=== PATIENT | male | born 1965 | race Two or more races ===

== ENCOUNTER 2021-07-18 22:10 | Inpatient (IN) | payer OTHER ==
[~2021-07-18] VITALS: Ht 172.7 cm; Wt 62.1 kg
[2021-07-18] MEDS ORDERED: BIKTARVY 50-201 EACH PO (22:33)
[2021-07-18] MEDS ORDERED: SPIRINOLACTONE (22:34)
== END 2021-08-23 17:32 | disposition home or self-care (01) | DRG 602 ==
LOC: ER 22:10 → MEDJ 07-19 15:19
PROVIDERS: ADMIT Internal Medicine; ATTEND Internal Medicine
PROC: 30233R1 Transfusion of Nonautologous Platelets into Peripheral Vein, Percutaneous Approach (ICD-10-PCS; principal; 2021-07-25)
PROC: 30233N1 Transfusion of Nonautologous Red Blood Cells into Peripheral Vein, Percutaneous Approach (ICD-10-PCS; 2021-07-27)
PROC: 0BBC3ZX Excision of Right Upper Lung Lobe, Percutaneous Approach, Diagnostic (ICD-10-PCS; 2021-08-03)
PROC: 02HV33Z Insertion of Infusion Device into Superior Vena Cava, Percutaneous Approach (ICD-10-PCS; 2021-08-10)
PROC: 0JPT0WZ Removal of Totally Implantable Vascular Access Device from Trunk Subcutaneous Tissue and Fascia, Open Approach (ICD-10-PCS; 2021-08-12)
DX: L03.116 Cellulitis of left lower limb (principal); A41.89 Other specified sepsis; T80.211A Bloodstream infection due to central venous catheter, initial encounter; B20 Human immunodeficiency virus [HIV] disease; C46.0 Kaposi's sarcoma of skin; Z16.19 Resistance to other specified beta lactam antibiotics; Z16.24 Resistance to multiple antibiotics; D69.59 Other secondary thrombocytopenia; D63.0 Anemia in neoplastic disease; D63.8 Anemia in other chronic diseases classified elsewhere; D46.9 Myelodysplastic syndrome, unspecified; E03.9 Hypothyroidism, unspecified; J84.89 Other specified interstitial pulmonary diseases; Z95.828 Presence of other vascular implants and grafts; B96.1 Klebsiella pneumoniae [K. pneumoniae] as the cause of diseases classified elsewhere

== ENCOUNTER 2021-09-25 14:42 | Inpatient (IN) | payer OTHER ==
[~2021-09-25] VITALS: Ht 172.7 cm; Wt 67.1 kg
[~2021-09-25 14:42] MED LIST: BIKTARVY 50-201 EACH PO; SPIRINOLACTONE
[2021-09-25] MEDS ORDERED: AMITRIPTYLINE H10 MG PO (15:23)
[2021-09-25] MEDS ORDERED: LEVOTHYROXINE125 MC1 PO (15:23)
[2021-09-25] MEDS ORDERED: PROTONIX40 M1 PO (15:23)
[2021-09-25] MEDS ORDERED: NEURIN (15:24)
[2021-09-25] MEDS ORDERED: SULFAMETHOXAZOL20 ML (15:24)
[2021-09-25] MEDS ORDERED: DIALYVITE TABL1 EACH (15:25)
--- NOTE | 2021-09-25 15:25 | NUR ---
SE RECIBE PTE ALERTA Y ORIENTADO X3,REFIERE TENR CANCER EN LA MELYNA HOWARDDA ,REFIERE TENR SECRECIONES AMARILLENTAS,DESDE EL SABADO BRADY DRA.HERNADEZ PITTS.
--- NOTE | 2021-09-25 20:35 | NUR ---
PACIENTE EVALUADO POR DRA GAMEZ QUIEN ORDENA [place] MEDICO, STEVE DEE LE ORIENTA A PACIENTE SOBRE EL MISMO Y REFIERE ENTENDER. LE COLECTA MUESTRA Y ADM MED GARCÍA ORDEN.
--- NOTE | 2021-09-25 23:23 | NUR ---
SE RECEIBE PTE MASCULINO DE 56 YRS ALERTA CONCIENT Y TRANQUILO , EN SUSSY CON BARANDAS ELEVADA. PTE SE MANTIENE CONSULTADO CON EL ELIAS MISHRA . SE MANTIENE BAJO OBSERVACION.
[2021-09-26] MEDS ORDERED: FOLIC ACID1 MG (14:40)
[2021-09-26] MEDS ORDERED: LORAZEPAM2 MG (14:41)
[2021-09-26] MEDS ORDERED: MULTIVITAMIN1 EACH (14:41)
[2021-09-26] MEDS ORDERED: ABANEU-SL TABL1 EACH (14:41)
[2021-09-26] MEDS ORDERED: TRAMADOL HCL50 MG (14:41)
== END 2021-10-06 22:28 | disposition home or self-care (01) | DRG 603 ==
LOC: ER 14:42 → SURH 09-26 00:40 → ICU-2 09-26 00:40 → SEC-K 09-26 09:48 → SURH 09-26 10:26
PROVIDERS: Surgery; ADMIT Internal Medicine; ATTEND Internal Medicine
PROC: B54DZZZ Ultrasonography of Bilateral Lower Extremity Veins (ICD-10-PCS; 2021-09-26)
PROC: 02HV33Z Insertion of Infusion Device into Superior Vena Cava, Percutaneous Approach (ICD-10-PCS; 2021-09-26)
PROC: 30233N1 Transfusion of Nonautologous Red Blood Cells into Peripheral Vein, Percutaneous Approach (ICD-10-PCS; 2021-10-01)
PROC: 05H533Z Insertion of Infusion Device into Right Subclavian Vein, Percutaneous Approach (ICD-10-PCS; principal; 2021-10-04 22:00)
DX: L03.116 Cellulitis of left lower limb (principal); B20 Human immunodeficiency virus [HIV] disease; C46.0 Kaposi's sarcoma of skin; D63.0 Anemia in neoplastic disease; D46.9 Myelodysplastic syndrome, unspecified; K76.9 Liver disease, unspecified; E03.9 Hypothyroidism, unspecified; Z20.822 Contact with and (suspected) exposure to COVID-19; R16.1 Splenomegaly, not elsewhere classified; Z85.72 Personal history of non-Hodgkin lymphomas

== ENCOUNTER 2022-01-30 15:05 | Inpatient (IN) | payer OTHER ==
[~2022-01-30] VITALS: Ht 172.7 cm; Wt 70.3 kg
[~2022-01-30 15:05] MED LIST changes: +ABANEU-SL TABL1 EACH; +AMITRIPTYLINE H10 MG PO; +DIALYVITE TABL1 EACH; +FOLIC ACID1 MG; +LEVOTHYROXINE125 MC1 PO; +LORAZEPAM2 MG; +MULTIVITAMIN1 EACH; +NEURIN; +PROTONIX40 M1 PO; +SULFAMETHOXAZOL20 ML; +TRAMADOL HCL50 MG
--- NOTE | 2022-01-30 15:29 | NUR ---
PATIENT IS RECIEVED SAYING THAT HE HAS THE FLU AND SUSPECTS TO HAVE A PNEUMONIA.
--- NOTE | 2022-01-30 16:32 | NUR ---
SE RECIBE PTE ALERTA ORIENTADO X3.PTE REHUSA MUESTRAS DE LABORATORIO Y VENOPUNCION.SE ORIENTA PTE SOBRE IMPORTANCIA DE TX MEDICO. SE NOTIFICA A .PTE REHUSA ABGS Y TX DE TERAPIAS RESPIRATORIAS.
--- NOTE | 2022-01-30 17:31 | NUR ---
PTE ALERTA ORIENTADO X3. SE NAHOMI MUESTRAS DE LABORATORIO USANDO MEDIDAS ASEPTICAS. SE INTENTA VENOPUNCION LA CUAL NO SE PUDO ANTONIO.
== END 2022-02-06 14:40 | disposition home or self-care (01) | DRG 194 ==
LOC: ER 15:05 → SEC-K 20:04 → MEDJ 02-01 11:55
PROVIDERS: ADMIT Internal Medicine; ATTEND Internal Medicine
PROC: BB24ZZZ Computerized Tomography (CT Scan) of Bilateral Lungs (ICD-10-PCS; principal; 2022-01-30)
PROC: 3E0F7GC Introduction of Other Therapeutic Substance into Respiratory Tract, Via Natural or Artificial Opening (ICD-10-PCS; 2022-01-30)
PROC: 30233R1 Transfusion of Nonautologous Platelets into Peripheral Vein, Percutaneous Approach (ICD-10-PCS; 2022-02-05)
DX: J18.0 Bronchopneumonia, unspecified organism (principal); B20 Human immunodeficiency virus [HIV] disease; B49 Unspecified mycosis; C46.9 Kaposi's sarcoma, unspecified; D69.59 Other secondary thrombocytopenia; D51.8 Other vitamin B12 deficiency anemias; D63.0 Anemia in neoplastic disease; D46.9 Myelodysplastic syndrome, unspecified; Z20.822 Contact with and (suspected) exposure to COVID-19

== ENCOUNTER 2022-03-19 09:46 | Emergency (ER) | payer OTHER ==
[~2022-03-19] VITALS: Ht 172.7 cm; Wt 73.5 kg
== END 2022-03-19 16:27 | disposition home or self-care (01) ==
LOC: ER 09:46
DX: D69.6 Thrombocytopenia, unspecified (principal); B20 Human immunodeficiency virus [HIV] disease; C46.9 Kaposi's sarcoma, unspecified; Z20.822 Contact with and (suspected) exposure to COVID-19; Z88.8 Allergy status to other drugs, medicaments and biological substances

== ENCOUNTER 2022-04-05 09:06 | Outpatient (CLI) | payer OTHER ==
[2022-04-06] MEDS ORDERED: PENTOXIFYLLINE400 MG (15:25)
[2022-04-06] MEDS ORDERED: FAMOTIDINE20 MG (15:25)
[2022-04-06] MEDS ORDERED: PREDNISONE20 MG (15:26)
== END 2022-04-05 09:08 | disposition home or self-care (01) ==
LOC: NUCLEAR 09:06
PROVIDERS: ATTEND Internal Medicine Hematology & Oncology
DX: I82.403 Acute embolism and thrombosis of unspecified deep veins of lower extremity, bilateral (principal); I73.9 Peripheral vascular disease, unspecified

== ENCOUNTER 2022-04-05 23:07 | Inpatient (IN) | payer OTHER ==
[~2022-04-05] VITALS: Ht 175.3 cm; Wt 90.7 kg
--- NOTE | 2022-04-05 23:14 | NUR ---
PACIENTE REFIERE [facility] ME REALIZARON UN DUPLEX EN EL HOSPITAL Y ME ENVIARON A LA CASA. HE VUELTO YA QUE ESTOY CON DOLOR EN LA PIERNA Y LA VEO HINCHADA.
--- NOTE | 2022-04-06 01:05 | NUR ---
AL MOMENTO DE INTERVENIR CON PTE Y REALIZAR ORDENES MEDICAS, EL MISMO INDICA QUE NO VA A PERMITIR QUE LO CANALICEN Y QUE SE LE REALICEN MUESTRAS DE LABORATORIO SI NO ES A ATRAVES DEL MEDPORT. SE LLAMA A LA DRA Nisa PITTS, QUIEN AUTORIZA A UTILIZAR EL MISMO.
--- NOTE | 2022-04-06 01:45 | NUR ---
PTE EVALUADO POR EL DR LISA CHERY ORDENA EL [place]. SE ORIENTA SOBRE EL TX ORDENADO, LO CUAL REFIERE ENTENDER. 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 PTE TOLERA PROCEDIMIENTO. SE REALIZAN PRUEBAS DE LABORATORIO Y SE ADMINISTRAN MEDICAMENTOS GARCÍA ORDEN MEDICA Y SIGUIENDO MEDIDAS ASEPTICAS Y ESTERILES. PENDIENTE A COLECTAR MUESTRA DE U/A, PTE CON ENVASE.
--- NOTE | 2022-04-06 08:01 | NUR ---
SE RECIBE PTE ALERTA Y ORIENTADO POR 3 EN EL AREA DE OBSERVACION EN SUSSY CON BARANDAS ELEVADA Y TIMBRE ACCESIBLE PTE NO PRESENTA DOLOR AL MOMENTO, SE OBSERVA VENOPUNCION PATENTE Y JOANA DE EDEMA, PTE SE MANTIENE EN OBSERVACION Y BAJO TRATAMIENTO EN ESPERA DEL DR KIM
[2022-04-06] MEDS ORDERED: PENTOXIFYLLINE400 MG (15:25)
[2022-04-06] MEDS ORDERED: FAMOTIDINE20 MG (15:25)
[2022-04-06] MEDS ORDERED: PREDNISONE20 MG (15:26)
== END 2022-04-10 10:46 | disposition home or self-care (01) | DRG 603 ==
LOC: ER 23:07 → MEDJ 04-06 10:49
PROVIDERS: ADMIT Internal Medicine; ATTEND Internal Medicine
PROC: 8E0ZXY6 Isolation (ICD-10-PCS; principal; 2022-04-06)
PROC: BW40ZZZ Ultrasonography of Abdomen (ICD-10-PCS; 2022-04-06)
PROC: B030ZZZ Magnetic Resonance Imaging (MRI) of Brain (ICD-10-PCS; 2022-04-06)
PROC: B54DZZZ Ultrasonography of Bilateral Lower Extremity Veins (ICD-10-PCS; 2022-04-06)
PROC: B44HZZZ Ultrasonography of Bilateral Lower Extremity Arteries (ICD-10-PCS; 2022-04-06)
PROC: 30233R1 Transfusion of Nonautologous Platelets into Peripheral Vein, Percutaneous Approach (ICD-10-PCS; 2022-04-09)
DX: L03.116 Cellulitis of left lower limb (principal); B20 Human immunodeficiency virus [HIV] disease; C46.0 Kaposi's sarcoma of skin; I85.10 Secondary esophageal varices without bleeding; M79.662 Pain in left lower leg; D69.59 Other secondary thrombocytopenia; D63.0 Anemia in neoplastic disease; D70.8 Other neutropenia; H53.8 Other visual disturbances; R51.9 Headache, unspecified; E80.6 Other disorders of bilirubin metabolism; D46.Z Other myelodysplastic syndromes; B19.20 Unspecified viral hepatitis C without hepatic coma; K74.69 Other cirrhosis of liver; R16.1 Splenomegaly, not elsewhere classified; F17.210 Nicotine dependence, cigarettes, uncomplicated; Z20.822 Contact with and (suspected) exposure to COVID-19
CPT/HCPCS: 70553

== ENCOUNTER → 2022-06-16 | Emergency (ER) | payer OTHER ==
[~2022-06-16] VITALS: Ht 172.7 cm; Wt 70.3 kg
[~2022-06-16] MED LIST changes: +ABANEU-SL TABL1 EACH SL; +B12-FOLIC ACID1 EACH PO; +BACTRIM DS TAB1 EACH PO; +FAMOTIDINE20 MG; +LEVOTHYROXINE112 MCG PO; +LORAZEPAM2 MG PO; +MULTIVITAMIN1 EACH PO; +PANTOPRAZOLE SO40 MG PO; +PENTOXIFYLLINE400 MG; +PENTOXIFYLLINE400 MG PO; +PREDNISONE20 MG; +PROMACTA25 MG PO; +TIROSINT112 MCG PO; +ULTRAM50 MG PO; +ZUPLENZ4 MG PO
== END | disposition home or self-care (01) ==
LOC: ER 07:12
DX: M54.50 Low back pain, unspecified (principal); B20 Human immunodeficiency virus [HIV] disease; C72.0 Malignant neoplasm of spinal cord; G82.20 Paraplegia, unspecified; Z88.2 Allergy status to sulfonamides; N39.0 Urinary tract infection, site not specified; D46.Z Other myelodysplastic syndromes

== ENCOUNTER 2022-06-20 11:38 | Inpatient (IN) | payer OTHER ==
[~2022-06-20] VITALS: Ht 172.7 cm; Wt 70.3 kg
[2022-07-05] MEDS ORDERED: AMITRIPTYLINE H25 MG PO (09:31)
== END 2022-07-05 10:44 | disposition home or self-care (01) | DRG 603 ==
LOC: ER 11:38 → MEDJ 18:16
PROVIDERS: ADMIT Internal Medicine; ATTEND Internal Medicine
PROC: B54DZZZ Ultrasonography of Bilateral Lower Extremity Veins (ICD-10-PCS; 2022-06-20)
PROC: 30233R1 Transfusion of Nonautologous Platelets into Peripheral Vein, Percutaneous Approach (ICD-10-PCS; principal; 2022-06-21)
PROC: B020ZZZ Computerized Tomography (CT Scan) of Brain (ICD-10-PCS; 2022-06-21)
PROC: BR29ZZZ Computerized Tomography (CT Scan) of Lumbar Spine (ICD-10-PCS; 2022-06-21)
PROC: BQ3LZZZ Magnetic Resonance Imaging (MRI) of Right Foot (ICD-10-PCS; 2022-06-25)
PROC: 0HBKXZX Excision of Right Lower Leg Skin, External Approach, Diagnostic (ICD-10-PCS; 2022-07-03)
DX: L03.115 Cellulitis of right lower limb (principal); C81.90 Hodgkin lymphoma, unspecified, unspecified site; B20 Human immunodeficiency virus [HIV] disease; K76.6 Portal hypertension; C46.0 Kaposi's sarcoma of skin; I85.10 Secondary esophageal varices without bleeding; D46.9 Myelodysplastic syndrome, unspecified; I87.2 Venous insufficiency (chronic) (peripheral); I73.9 Peripheral vascular disease, unspecified; M79.662 Pain in left lower leg; M79.661 Pain in right lower leg; K76.9 Liver disease, unspecified; K74.60 Unspecified cirrhosis of liver; M54.10 Radiculopathy, site unspecified; B18.2 Chronic viral hepatitis C; B02.9 Zoster without complications; R68.84 Jaw pain
CPT/HCPCS: 73722

== ENCOUNTER 2022-08-22 17:50 | Emergency (ER) | payer OTHER ==
[~2022-08-22] VITALS: Ht 172.7 cm; Wt 70.8 kg
[~2022-08-22 17:50] MED LIST changes: +AMITRIPTYLINE H25 MG PO
== END 2022-08-22 21:49 | disposition home or self-care (01) ==
LOC: ER 17:50
DX: J06.9 Acute upper respiratory infection, unspecified (principal); J00 Acute nasopharyngitis [common cold]; D46.9 Myelodysplastic syndrome, unspecified; Z20.822 Contact with and (suspected) exposure to COVID-19; Z88.6 Allergy status to analgesic agent; Z88.1 Allergy status to other antibiotic agents

== ENCOUNTER 2022-09-24 10:23 | Inpatient (IN) | payer OTHER ==
[~2022-09-24] VITALS: Ht 172.7 cm; Wt 72.6 kg
[2022-09-27] MEDS ORDERED: ZOVIRAX800 MG PO (19:00)
[2022-09-27] MEDS ORDERED: BACTRIM DS TAB1 EACH PO (19:01)
[2022-09-27] MEDS ORDERED: INTESTINEX680 M2 PO (19:02)
[2022-09-27] MEDS ORDERED: CONZIP100 MG PO (19:11)
[2022-09-27] MEDS ORDERED: NEURONTIN300 MG PO (19:11)
== END 2022-09-27 19:18 | disposition home or self-care (01) | DRG 602 ==
LOC: ER 10:23 → MEDJ 18:43
PROVIDERS: ADMIT Internal Medicine; ATTEND Internal Medicine
DX: L03.116 Cellulitis of left lower limb (principal); B02.1 Zoster meningitis; B20 Human immunodeficiency virus [HIV] disease; C46.9 Kaposi's sarcoma, unspecified; L02.416 Cutaneous abscess of left lower limb; B95.62 Methicillin resistant Staphylococcus aureus infection as the cause of diseases classified elsewhere; D46.9 Myelodysplastic syndrome, unspecified; G63 Polyneuropathy in diseases classified elsewhere; K73.9 Chronic hepatitis, unspecified; Z85.72 Personal history of non-Hodgkin lymphomas; Z08 Encounter for follow-up examination after completed treatment for malignant neoplasm

== ENCOUNTER 2022-10-30 11:10 | Emergency (ER) | payer OTHER ==
[~2022-10-30] VITALS: Ht 172.7 cm; Wt 73.9 kg
[~2022-10-30 11:10] MED LIST changes: +CONZIP100 MG PO; +INTESTINEX680 M2 PO; +NEURONTIN300 MG PO; +ZOVIRAX800 MG PO
[2022-10-30] MEDS ORDERED: LEVOTHYROXINE25 MCG PO (11:55)
[2022-10-30] MEDS ORDERED: BIKTARVY 50-201 EACH PO (11:56)
== END 2022-10-30 14:47 | disposition home or self-care (01) ==
LOC: ER 11:10 → EMR PED 11:31 → ER 14:47
PROVIDERS: Emergency Medicine
DX: R05.9 Cough, unspecified (principal); Z88.8 Allergy status to other drugs, medicaments and biological substances; Z20.822 Contact with and (suspected) exposure to COVID-19

== ENCOUNTER 2022-11-24 14:48 | Emergency (ER) | payer OTHER ==
[~2022-11-24] VITALS: Ht 172.7 cm; Wt 68.0 kg
[~2022-11-24 14:48] MED LIST changes: +LEVOTHYROXINE25 MCG PO
[2022-11-24 18:52] LABS: HEMATOCRIT 28.8 % (39.0-48.0); HEMOGLOBIN 9.9 g/dL (13-16.00); MEAN CELL VOLUME 96.7 fL (80.0-100.00); MEAN CORPUSCULAR HEMOGLOBIN 33.3 pg (27.00-32.0); MEAN CORPUSCULAR HGB CONC 34.4 g/dl (32.0-36.0); RED BLOOD COUNT 2.98 M/uL (4.00-6.00); RED CELL DISTRIBUTION WIDTH 15.6 % (11.5-14.5)
[2022-11-24 19:09] LABS: CALCIUM 7.7 mg/dL (8.5-10.1); CREATININE SERUM 0.95 mg/dL (0.70-1.30); GFR 81.14; POTASSIUM 3.2 mEq/L (3.5-5.1)
[2022-11-24 20:22] LABS: PLATELET COUNT 32 K/uL (150-450)
[2022-11-24 21:24] LABS: URINE APPEARANCE Clear; URINE BILIRRUBIN Small (NEGATIVE); URINE BLOOD Negative; URINE COLOR Dark Yellow; URINE GLUCOSE Negative (NEGATIVE); URINE LEUKOCYTE Trace; URINE NITRATE Negative; URINE PROTEIN 30 (NEGATIVE)
[2022-11-24 21:27] LABS: URINE BACTERIA 7.5 uL (0.0-1933); URINE RBC 15.8 uL (0.0-20.8)
[2022-11-24 21:56] LABS: URINE UROBILINOGEN >= 8.0 E.U./dl
== END 2022-11-24 22:45 | disposition home or self-care (01) ==
LOC: ER 14:48
PROVIDERS: Nurse Practitioner Family
DX: S20.211A Contusion of right front wall of thorax, initial encounter (principal); S60.221A Contusion of right hand, initial encounter; S00.93XA Contusion of unspecified part of head, initial encounter; W18.39XA Other fall on same level, initial encounter; Y93.89 Activity, other specified; Y92.018 Other place in single-family (private) house as the place of occurrence of the external cause; Y99.9 Unspecified external cause status; Z20.822 Contact with and (suspected) exposure to COVID-19; Z88.8 Allergy status to other drugs, medicaments and biological substances

== ENCOUNTER 2022-11-26 18:01 | Emergency (ER) | payer OTHER ==
[~2022-11-26] VITALS: Ht 172.7 cm; Wt 70.3 kg
[2022-11-26 19:46] LABS: HEMATOCRIT 27.6 % (39.0-48.0); MEAN CELL VOLUME 95.7 fL (80.0-100.00); MEAN CORPUSCULAR HEMOGLOBIN 34.6 pg (27.00-32.0); MEAN CORPUSCULAR HGB CONC 36.1 g/dl (32.0-36.0); RED BLOOD COUNT 2.88 M/uL (4.00-6.00)
[2022-11-26 19:50] LABS: PLATELET COUNT 34 K/uL (150-450)
[2022-11-26 19:58] LABS: CALCIUM 7.5 mg/dL (8.5-10.1); CREATININE SERUM 0.97 mg/dL (0.70-1.30); GFR 79.22; POTASSIUM 3.37 mEq/L (3.5-5.1)
[2022-11-26] MEDS ORDERED: PERCOGESIC 3251 EACH PO (21:29)
[2022-11-26] MEDS ORDERED: ONDANSETRON HCL4 MG PO (21:31)
[2022-11-26] MEDS ORDERED: PEPCID AC20 MG PO (21:31)
== END 2022-11-26 21:46 | disposition home or self-care (01) ==
LOC: ER 18:01
PROVIDERS: General Practice
DX: R10.9 Unspecified abdominal pain (principal); Z85.89 Personal history of malignant neoplasm of other organs and systems; B20 Human immunodeficiency virus [HIV] disease; Z87.898 Personal history of other specified conditions; Z88.8 Allergy status to other drugs, medicaments and biological substances; R07.89 Other chest pain
CPT/HCPCS: 36415; 71045; 96365; 96366; 99284; J3490; J7042

== ENCOUNTER 2022-11-27 06:21 | Emergency (ER) | payer OTHER ==
[~2022-11-27] VITALS: Ht 172.7 cm; Wt 69.9 kg
[~2022-11-27 06:21] MED LIST changes: +ONDANSETRON HCL4 MG PO; +PEPCID AC20 MG PO; +PERCOGESIC 3251 EACH PO
== END 2022-11-27 14:42 | disposition home or self-care (01) ==
LOC: ER
DX: R11.2 Nausea with vomiting, unspecified (principal); B20 Human immunodeficiency virus [HIV] disease; D46.Z Other myelodysplastic syndromes; R19.7 Diarrhea, unspecified; R10.9 Unspecified abdominal pain; Z88.8 Allergy status to other drugs, medicaments and biological substances; K74.69 Other cirrhosis of liver; R16.1 Splenomegaly, not elsewhere classified

== ENCOUNTER 2022-12-03 16:36 | Emergency (ER) | payer OTHER ==
[~2022-12-03] VITALS: Ht 167.6 cm; Wt 72.6 kg
[2022-12-03 19:21] LABS: HEMOGLOBIN 9.3 g/dL (13-16.00); MEAN CELL VOLUME 92.9 fL (80.0-100.00); MEAN CORPUSCULAR HEMOGLOBIN 32.1 pg (27.00-32.0); MEAN CORPUSCULAR HGB CONC 34.5 g/dl (32.0-36.0); RED CELL DISTRIBUTION WIDTH 16.2 % (11.5-14.5)
[2022-12-03 19:22] LABS: PLATELET COUNT 65 K/uL (150-450)
[2022-12-03 19:31] LABS: INR 1.31; PARTIAL THROMBOPLASTIN TIME 30.6 SECONDS (22.0-34.0); PROTHROMBIN TIME 13.5 SECONDS (9.0-11.5)
[2022-12-03 19:35] LABS: ALBUMIN 1.9 gm/dL (3.4-5.0); BILIRUBIN TOTAL 3.94 mg/dL (0.3-1.2); BILIRUBIN,CONJUGATED 1.93 mg/dL (0.0-0.2); BILIRUBIN,UNCONJUGATED 2.01 mg/dL (0.0-0.6); CALCIUM 7.3 mg/dL (8.5-10.1); CREATININE SERUM 0.84 mg/dL (0.70-1.30); GFR 93.52; GLOBULINA 3.7 G/DL (2.4-3.5); POTASSIUM 3.53 mEq/L (3.5-5.1); TOTAL PROTEIN 5.6 gm/dL (6.4-8.2)
[2022-12-03] MEDS ORDERED: LASIX20 MG PO (21:25)
[2022-12-03] MEDS ORDERED: ALDACTONE50 MG PO (21:25)
[2022-12-03] MEDS ORDERED: LACTULOSE20 GM/30 M PO (21:25)
== END 2022-12-03 21:34 | disposition home or self-care (01) ==
LOC: ER 16:37
PROVIDERS: General Practice
DX: R60.1 Generalized edema (principal); B20 Human immunodeficiency virus [HIV] disease; K76.89 Other specified diseases of liver; Z88.2 Allergy status to sulfonamides
CPT/HCPCS: 36415; 71046; 96365; 99284; J1940

== ENCOUNTER 2022-12-10 13:51 | Inpatient (IN) | payer OTHER ==
[~2022-12-10] VITALS: Ht 152.4 cm; Wt 68.0 kg
[~2022-12-10 13:51] MED LIST changes: +ALDACTONE50 MG PO; +LACTULOSE20 GM/30 M PO; +LASIX20 MG PO
[2022-12-10 17:06] LABS: URINE APPEARANCE Clear; URINE BILIRRUBIN Small (NEGATIVE); URINE BLOOD Negative; URINE COLOR Dark Yellow; URINE GLUCOSE Negative (NEGATIVE); URINE LEUKOCYTE Small; URINE NITRATE Positive; URINE PROTEIN 30 (NEGATIVE)
[2022-12-10 17:07] LABS: URINE BACTERIA 3.7 uL (0.0-1933); URINE RBC 5.6 uL (0.0-20.8); URINE WBC 5.2 uL (0.0-23.2)
[2022-12-10 17:42] LABS: MEAN CELL VOLUME 95.7 fL (80.0-100.00); MEAN CORPUSCULAR HGB CONC 33.9 g/dl (32.0-36.0); RED BLOOD COUNT 2.38 M/uL (4.00-6.00); RED CELL DISTRIBUTION WIDTH 18.3 % (11.5-14.5)
[2022-12-10 17:49] LABS: MEAN CORPUSCULAR HEMOGLOBIN 32.3 pg (27.00-32.0)
[2022-12-10 17:50] LABS: HEMATOCRIT 22.8 % (39.0-48.0); HEMOGLOBIN 7.7 g/dL (13-16.00); PLATELET COUNT 76 K/uL (150-450)
[2022-12-10 18:15] LABS: CALCIUM 7.5 mg/dL (8.5-10.1); CREATININE SERUM 1.04 mg/dL (0.70-1.30); GFR 73.1; POTASSIUM 3.96 mEq/L (3.5-5.1)
[2022-12-10 20:31] LABS: MEAN CELL VOLUME 94.7 fL (80.0-100.00); MEAN CORPUSCULAR HGB CONC 35.2 g/dl (32.0-36.0); RED BLOOD COUNT 2.11 M/uL (4.00-6.00); RED CELL DISTRIBUTION WIDTH 18.5 % (11.5-14.5)
[2022-12-10 20:34] LABS: MEAN CORPUSCULAR HEMOGLOBIN 33.1 pg (27.00-32.0); PLATELET COUNT 64 K/uL (150-450)
[2022-12-11 01:17] LABS: INR 1.31; PARTIAL THROMBOPLASTIN TIME 24.9 SECONDS (22.0-34.0); PROTHROMBIN TIME 13.5 SECONDS (9.0-11.5)
[2022-12-11 17:46] LABS: HEMATOCRIT 25.7 % (39.0-48.0); MEAN CELL VOLUME 93.1 fL (80.0-100.00); MEAN CORPUSCULAR HGB CONC 33.9 g/dl (32.0-36.0); RED BLOOD COUNT 2.76 M/uL (4.00-6.00); RED CELL DISTRIBUTION WIDTH 18.3 % (11.5-14.5)
[2022-12-11 17:53] LABS: MEAN CORPUSCULAR HEMOGLOBIN 31.5 pg (27.00-32.0); PLATELET COUNT 62 K/uL (150-450)
[2022-12-11 17:54] LABS: HEMOGLOBIN 8.7 g/dL (13-16.00)
[2022-12-12 10:23] LABS: HEMATOCRIT 28.7 % (39.0-48.0); HEMOGLOBIN 10.2 g/dL (13-16.00); MEAN CELL VOLUME 92.8 fL (80.0-100.00); MEAN CORPUSCULAR HGB CONC 35.6 g/dl (32.0-36.0); RED BLOOD COUNT 3.09 M/uL (4.00-6.00); RED CELL DISTRIBUTION WIDTH 18.8 % (11.5-14.5)
[2022-12-12 10:54] LABS: ALBUMIN 1.5 gm/dL (3.4-5.0); BILIRUBIN TOTAL 2.76 mg/dL (0.3-1.2); CALCIUM 7.3 mg/dL (8.5-10.1); CREATININE SERUM 0.92 mg/dL (0.70-1.30); GFR 84.2; GLOBULINA 3.9 G/DL (2.4-3.5); POTASSIUM 4.2 mEq/L (3.5-5.1); TOTAL PROTEIN 5.4 gm/dL (6.4-8.2)
[2022-12-12 10:56] LABS: C-REACTIVE PROTEIN 9.27 MG/DL (0.00-0.29)
[2022-12-12 11:16] LABS: PLATELET COUNT 66 K/uL (150-450)
[2022-12-12 12:00] LABS: ob NEGATIVE (NEGATIVE)
[2022-12-13 19:48] LABS: HEMATOCRIT 33.5 % (39.0-48.0); HEMOGLOBIN 11.3 g/dL (13-16.00); MEAN CELL VOLUME 92.8 fL (80.0-100.00); MEAN CORPUSCULAR HEMOGLOBIN 31.3 pg (27.00-32.0); MEAN CORPUSCULAR HGB CONC 33.8 g/dl (32.0-36.0); RED BLOOD COUNT 3.62 M/uL (4.00-6.00); RED CELL DISTRIBUTION WIDTH 18.7 % (11.5-14.5)
[2022-12-13 19:57] LABS: PLATELET COUNT 64 K/uL (150-450)
[2022-12-14 07:38] LABS: HEMATOCRIT 31.8 % (39.0-48.0); HEMOGLOBIN 10.8 g/dL (13-16.00); MEAN CELL VOLUME 92.4 fL (80.0-100.00); MEAN CORPUSCULAR HEMOGLOBIN 31.3 pg (27.00-32.0); MEAN CORPUSCULAR HGB CONC 33.9 g/dl (32.0-36.0); RED BLOOD COUNT 3.45 M/uL (4.00-6.00); RED CELL DISTRIBUTION WIDTH 17.9 % (11.5-14.5)
[2022-12-14 07:56] LABS: BILIRUBIN TOTAL 2.83 mg/dL (0.3-1.2)
[2022-12-14 08:00] LABS: BILIRUBIN,CONJUGATED 1.14 mg/dL (0.0-0.2); BILIRUBIN,UNCONJUGATED 1.69 mg/dL (0.0-0.6)
[2022-12-14 08:21] LABS: PLATELET COUNT 55 K/uL (150-450)
[2022-12-14 19:10] LABS: LOG 10 1.778 (.)
[2022-12-15 08:53] LABS: ERYTHROCYTE SEDIMENTATION RATE 8 mm/hr
[2022-12-15 08:58] LABS: ALBUMIN 1.5 gm/dL (3.4-5.0); BILIRUBIN TOTAL 2.04 mg/dL (0.3-1.2); CALCIUM 7.7 mg/dL (8.5-10.1); CREATININE SERUM 0.94 mg/dL (0.70-1.30); GFR 82.14; GLOBULINA 3.9 G/DL (2.4-3.5); POTASSIUM 4.33 mEq/L (3.5-5.1); TOTAL PROTEIN 5.4 gm/dL (6.4-8.2)
[2022-12-15 08:59] LABS: C-REACTIVE PROTEIN 1.87 MG/DL (0.00-0.29)
[2022-12-15 09:05] LABS: HEMATOCRIT 30.1 % (39.0-48.0); HEMOGLOBIN 10.2 g/dL (13-16.00); MEAN CELL VOLUME 92.5 fL (80.0-100.00); MEAN CORPUSCULAR HEMOGLOBIN 31.5 pg (27.00-32.0); RED BLOOD COUNT 3.26 M/uL (4.00-6.00); RED CELL DISTRIBUTION WIDTH 18.3 % (11.5-14.5)
[2022-12-15 09:53] LABS: PLATELET COUNT 56 K/uL (150-450)
[2022-12-21] MEDS ORDERED: ZYNCOF 400-201 EACH PO (17:06)
[2022-12-21] MEDS ORDERED: PEPCID AC20 MG PO (17:06)
[2022-12-21] MEDS ORDERED: INTESTINEX680 M1 PO (17:06)
[2022-12-21] MEDS ORDERED: LEVOFLOXACIN750 MG PO (17:06)
== END 2022-12-21 17:58 | disposition home or self-care (01) | DRG 977 ==
LOC: ER 13:51 → MEDJ 21:35
PROVIDERS: General Practice; Internal Medicine Hematology & Oncology; Student in an Organized Health Care Education/Training Program; ADMIT Internal Medicine; ATTEND Internal Medicine
PROC: 30233N1 Transfusion of Nonautologous Red Blood Cells into Peripheral Vein, Percutaneous Approach (ICD-10-PCS; 2022-12-11)
PROC: BW28ZZZ Computerized Tomography (CT Scan) of Head (ICD-10-PCS; principal; 2022-12-13)
PROC: B24BZZZ Ultrasonography of Heart with Aorta (ICD-10-PCS; 2022-12-19)
DX: D64.9 Anemia, unspecified (principal); B20 Human immunodeficiency virus [HIV] disease; N18.6 End stage renal disease; C46.9 Kaposi's sarcoma, unspecified; R78.81 Bacteremia; N39.0 Urinary tract infection, site not specified; L03.116 Cellulitis of left lower limb; I12.0 Hypertensive chronic kidney disease with stage 5 chronic kidney disease or end stage renal disease; D61.818 Other pancytopenia; K76.82 Hepatic encephalopathy; E03.9 Hypothyroidism, unspecified; K74.69 Other cirrhosis of liver; B19.20 Unspecified viral hepatitis C without hepatic coma; Z20.822 Contact with and (suspected) exposure to COVID-19

== ENCOUNTER 2023-08-10 11:52 | Inpatient (IN) | payer OTHER ==
[~2023-08-10] VITALS: Ht 167.6 cm; Wt 72.6 kg
[~2023-08-10 11:52] MED LIST changes: +INTESTINEX680 M1 PO; +LEVOFLOXACIN750 MG PO; +SYNTHROID50 MCG PO; +ZYNCOF 400-201 EACH PO
--- NOTE | 2023-08-10 12:25 | NUR ---
SE RECIBE PTE ALERTA Y ORIENTADO X3 CUAL REFIERE SANGRADO EN LAS ENCIAS, DOLOR DE PECHO Y EN TODO EL CUERPO. PTE CON HX MEDICO DE SPLENOMEGALIA Y HIV POS. SE REALIZA EKG, SE NAHOMI S/V Y SE UBICA.
--- NOTE | 2023-08-10 14:14 | NUR ---
PTE REHUSA BENITA DE MUESTRAS HASTA QUE TENGAMOS LA AUTORIZACION PARA EL USO DE MEDPORT.
[2023-08-10 16:22] LABS: URINE APPEARANCE Clear; URINE BILIRRUBIN Negative (NEGATIVE); URINE BLOOD Negative; URINE COLOR Yellow; URINE GLUCOSE Negative (NEGATIVE); URINE LEUKOCYTE Negative; URINE NITRATE Negative; URINE PROTEIN Negative (NEGATIVE)
[2023-08-10 16:27] LABS: URINE RBC 4.1 uL (0.0-20.8)
[2023-08-10 16:43] LABS: URINE BACTERIA 0 uL (0.0-1933); URINE EPITHELIAL CELLS 0.2 uL (0.0-38.8); URINE WBC 0.4 uL (0.0-23.2)
[2023-08-10 16:50] LABS: HEMATOCRIT 24.3 % (39.0-48.0); MEAN CELL VOLUME 99.5 fL (80.0-100.00); MEAN CORPUSCULAR HGB CONC 35.7 g/dl (32.0-36.0); RED BLOOD COUNT 2.44 M/uL (4.00-6.00); RED CELL DISTRIBUTION WIDTH 15.5 % (11.5-14.5)
[2023-08-10 16:55] LABS: INR 1.31; PARTIAL THROMBOPLASTIN TIME 31.2 SECONDS (22.0-34.0); PROTHROMBIN TIME 13.5 SECONDS (9.0-11.5)
[2023-08-10 17:02] LABS: ALBUMIN 2.6 gm/dL (3.4-5.0); BILIRUBIN TOTAL 3.66 mg/dL (0.3-1.2); CREATININE SERUM 1.04 mg/dL (0.70-1.30); GFR 73.1; GLOBULINA 2.6 G/DL (2.4-3.5); POTASSIUM 3.46 mEq/L (3.5-5.1); TOTAL PROTEIN 5.2 gm/dL (6.4-8.2)
[2023-08-10 17:24] LABS: MEAN CORPUSCULAR HEMOGLOBIN 35.6 pg (27.00-32.0)
[2023-08-10 17:25] LABS: PLATELET COUNT 41 K/uL (150-450)
[2023-08-10 18:14] LABS: HEMOGLOBIN 8.7 g/dL (13-16.00)
[2023-08-10] MEDS ORDERED: 0.9 % SODIUM CHLORIDE 1,000 ML IV SCH (21:00)
[2023-08-10] MEDS ORDERED: CEFEPIME HCL 2,000 MG in 0.9 % SODIUM CHLORIDE 100 ML IV SCH (21:03)
[2023-08-10] MEDS ORDERED: VANCOMYCIN HCL 1,000 MG VIAL IV SCH (21:04)
[2023-08-10] MEDS ORDERED: PANTOPRAZOLE SODIUM 40 MG/VIAL VIAL IV SCH (21:04)
[2023-08-10] MEDS ORDERED: ACETAMINOPHEN 500 MG GEL..CAP PO PRN (21:15)
[2023-08-10] MEDS ORDERED: MEPERIDINE HCL/PF 25 MG/ML VIAL IM ONE (21:30)
[2023-08-11] MEDS ORDERED: MORPHINE SULFATE 4 MG/ML VIAL IV SCH (04:45)
[2023-08-11] MEDS ORDERED: LEVOTHYROXINE SODIUM 50 MCG TABLET PO SCH (06:00)
[2023-08-11] MEDS ORDERED: MORPHINE SULFATE 4 MG/ML CARTRIDGE IV SCH (14:00)
[2023-08-11 17:19] LABS: HEMATOCRIT 27.7 % (39.0-48.0); HEMOGLOBIN 9.8 g/dL (13-16.00); MEAN CELL VOLUME 100.3 fL (80.0-100.00); MEAN CORPUSCULAR HEMOGLOBIN 35.4 pg (27.00-32.0); MEAN CORPUSCULAR HGB CONC 35.3 g/dl (32.0-36.0); RED BLOOD COUNT 2.76 M/uL (4.00-6.00); RED CELL DISTRIBUTION WIDTH 15.3 % (11.5-14.5)
[2023-08-11 17:23] LABS: PLATELET COUNT 54 K/uL (150-450)
[2023-08-11] MEDS ORDERED: POTASSIUM BICARBONATE/CIT AC 25 MEQ TABLET.EFF PO SCH (21:00)
[2023-08-12 07:46] LABS: HEMATOCRIT 25.8 % (39.0-48.0); HEMOGLOBIN 9.3 g/dL (13-16.00); MEAN CORPUSCULAR HEMOGLOBIN 35.8 pg (27.00-32.0); MEAN CORPUSCULAR HGB CONC 36.2 g/dl (32.0-36.0); RED CELL DISTRIBUTION WIDTH 15.6 % (11.5-14.5)
[2023-08-12 07:55] LABS: ALBUMIN 2.6 gm/dL (3.4-5.0); BILIRUBIN TOTAL 4.03 mg/dL (0.3-1.2); CALCIUM 8.2 mg/dL (8.5-10.1); CREATININE SERUM 1.01 mg/dL (0.70-1.30); GFR 75.61; GLOBULINA 2.6 G/DL (2.4-3.5); POTASSIUM 4.12 mEq/L (3.5-5.1); TOTAL PROTEIN 5.2 gm/dL (6.4-8.2)
[2023-08-12 10:41] LABS: PLATELET COUNT 47 K/uL (150-450)
[2023-08-13 12:14] LABS: ob POSITIVE (NEGATIVE)
[2023-08-14] MEDS ORDERED: MORPHINE SULFATE 4 MG/ML CARTRIDGE IV SCH (02:00)
[2023-08-14 08:21] LABS: MEAN CELL VOLUME 99.1 fL (80.0-100.00); MEAN CORPUSCULAR HGB CONC 35.7 g/dl (32.0-36.0); RED BLOOD COUNT 2.42 M/uL (4.00-6.00)
[2023-08-14 08:30] LABS: MEAN CORPUSCULAR HEMOGLOBIN 35.5 pg (27.00-32.0)
[2023-08-14 08:31] LABS: HEMOGLOBIN 8.6 g/dL (13-16.00); PLATELET COUNT 44 K/uL (150-450)
[2023-08-14 09:00] LABS: CALCIUM 8.4 mg/dL (8.5-10.1); CREATININE SERUM 0.94 mg/dL (0.70-1.30); GFR 82.14; MAGNESIUM 2.1 mg/dL (1.8-2.4); POTASSIUM 4.11 mEq/L (3.5-5.1)
[2023-08-14] MEDS ORDERED: FOLIC ACID 1 MG TABLET PO SCH (17:00)
[2023-08-14] MEDS ORDERED: CYANOCOBALAMIN (VITAMIN B-12) 1,000 MCG/ML VIAL IM SCH (17:00)
[2023-08-14] MEDS ORDERED: IRON FUM,PS/FOLIC/BCOMP,C NO.9 1 CAP CAPSULE PO SCH (17:00)
[2023-08-15 09:50] LABS: HEMATOCRIT 26.8 % (39.0-48.0); HEMOGLOBIN 9.6 g/dL (13-16.00); MEAN CELL VOLUME 98.6 fL (80.0-100.00); MEAN CORPUSCULAR HEMOGLOBIN 35.5 pg (27.00-32.0); RED BLOOD COUNT 2.71 M/uL (4.00-6.00); RED CELL DISTRIBUTION WIDTH 16.6 % (11.5-14.5)
[2023-08-15 09:51] LABS: PLATELET COUNT 51 K/uL (150-450)
[2023-08-15] MEDS ORDERED: ZINC OXIDE 30 GM,NYSTATIN 30 GM,SILVER SULFADIAZINE 50 GM TOP SCH (17:00)
[2023-08-16] MEDS ORDERED: MORPHINE SULFATE 4 MG/ML CARTRIDGE IV STA (08:25)
[2023-08-16] MEDS ORDERED: MIDAZOLAM HCL 2 MG/2 ML VIAL IV NR (12:00)
[2023-08-16] MEDS ORDERED: DIPHENHYDRAMINE HCL 50 MG/ML VIAL 1ML IV NR (12:00)
[2023-08-16] MEDS ORDERED: fentaNYL CITRATE 50 MCG/ML AMPUL IV NR (12:15)
[2023-08-16] MEDS ORDERED: MORPHINE SULFATE 4 MG/ML CARTRIDGE IV SCH (14:00)
[2023-08-16] MEDS ORDERED: HYDROCORTISONE ACETATE 25 MG/SUPP.RECT SUPP.RECT RECTAL SCH (17:00)
[2023-08-16] MEDS ORDERED: PSYLLIUM HUSK 1 PKT PACKET PO SCH (17:00)
[2023-08-18 13:36] LABS: PLATELET ESTIMATE DECREASED (NORMAL)
[2023-08-18] MEDS ORDERED: ONDANSETRON HCL 2 MG/ML VIAL IV PRN (20:30)
[2023-08-18] MEDS ORDERED: MORPHINE SULFATE 4 MG/ML CARTRIDGE IV PRN (20:30)
[2023-08-18] MEDS ORDERED: [UNRECOGNIZED DRUG - OTHER] PO SCH (21:00)
[2023-08-19] MEDS ORDERED: PANTOPRAZOLE SODIUM 40 MG TABLET.DR PO SCH (09:00)
[2023-08-20 07:02] LABS: HEMATOCRIT 24.2 % (39.0-48.0); MEAN CELL VOLUME 99.9 fL (80.0-100.00); MEAN CORPUSCULAR HGB CONC 35.5 g/dl (32.0-36.0); RED BLOOD COUNT 2.42 M/uL (4.00-6.00); RED CELL DISTRIBUTION WIDTH 18.3 % (11.5-14.5)
[2023-08-20 07:50] LABS: ALBUMIN 2.4 gm/dL (3.4-5.0); BILIRUBIN TOTAL 2.54 mg/dL (0.3-1.2); CREATININE SERUM 0.87 mg/dL (0.70-1.30); GFR 89.81; GLOBULINA 2.8 G/DL (2.4-3.5); POTASSIUM 4.13 mEq/L (3.5-5.1); TOTAL PROTEIN 5.2 gm/dL (6.4-8.2)
[2023-08-20 08:21] LABS: MEAN CORPUSCULAR HEMOGLOBIN 35.5 pg (27.00-32.0); PLATELET COUNT 35 K/uL (150-450)
[2023-08-20 08:22] LABS: HEMOGLOBIN 8.6 g/dL (13-16.00)
[2023-08-20] MEDS ORDERED: OXCARBAZEPINE 150 MG TABLET PO SCH (11:33)
[2023-08-20] MEDS ORDERED: OXCARBAZEPINE 150 MG PO SCH (21:00)
[2023-08-22] MEDS ORDERED: MORPHINE SULFATE 4 MG/ML CARTRIDGE IV PRN (02:45)
[2023-08-22 09:19] LABS: HEMATOCRIT 24.2 % (39.0-48.0); MEAN CELL VOLUME 100.8 fL (80.0-100.00); MEAN CORPUSCULAR HGB CONC 35.7 g/dl (32.0-36.0)
[2023-08-22 09:22] LABS: HEMOGLOBIN 8.6 g/dL (13-16.00); MEAN CORPUSCULAR HEMOGLOBIN 35.8 pg (27.00-32.0); PLATELET COUNT 33 K/uL (150-450)
[2023-08-22 09:36] LABS: CALCIUM 8.6 mg/dL (8.5-10.1); CREATININE SERUM 0.93 mg/dL (0.70-1.30); GFR 83.16; MAGNESIUM 1.9 mg/dL (1.8-2.4); POTASSIUM 4.36 mEq/L (3.5-5.1)
[2023-08-23] MEDS ORDERED: LEVOTHYROXINE SODIUM 50 MCG TABLET PO NR (13:00)
[2023-08-24] MEDS ORDERED: LEVOTHYROXINE SODIUM 50 MCG TABLET PO SCH (06:00)
[2023-08-24 07:53] LABS: CALCIUM 8.5 mg/dL (8.5-10.1); GFR 76.48; POTASSIUM 3.85 mEq/L (3.5-5.1)
[2023-08-24 08:24] LABS: HEMATOCRIT 24.8 % (39.0-48.0); MEAN CORPUSCULAR HGB CONC 35.7 g/dl (32.0-36.0); RED BLOOD COUNT 2.43 M/uL (4.00-6.00); RED CELL DISTRIBUTION WIDTH 19.2 % (11.5-14.5)
[2023-08-24 08:45] LABS: MEAN CORPUSCULAR HEMOGLOBIN 36.2 pg (27.00-32.0)
[2023-08-24 08:46] LABS: HEMOGLOBIN 8.8 g/dL (13-16.00); PLATELET COUNT 37 K/uL (150-450)
[2023-08-24] MEDS ORDERED: MORPHINE SULFATE 4 MG/ML VIAL IV PRN (11:00)
[2023-08-24] MEDS ORDERED: ONDANSETRON HCL 2 MG/ML VIAL IV PRN (12:45)
[2023-08-24] MEDS ORDERED: NALOXONE HCL 0.4 MG/ML AMPUL IV PRN (12:45)
[2023-08-24] MEDS ORDERED: DIPHENHYDRAMINE HCL 50 MG/ML VIAL 1ML IV PRN (12:45)
[2023-08-24] MEDS ORDERED: LACTULOSE 20 G/30 ML BLIST.PACK PO SCH (14:03)
[2023-08-24] MEDS ORDERED: MORPHINE SULFATE 4 MG/ML CARTRIDGE IV PRN (15:30)
[2023-08-26 09:23] LABS: HEMATOCRIT 26.3 % (39.0-48.0); HEMOGLOBIN 9.3 g/dL (13-16.00); MEAN CELL VOLUME 101.8 fL (80.0-100.00); MEAN CORPUSCULAR HGB CONC 35.3 g/dl (32.0-36.0); RED BLOOD COUNT 2.58 M/uL (4.00-6.00); RED CELL DISTRIBUTION WIDTH 17.9 % (11.5-14.5)
[2023-08-26 09:51] LABS: CALCIUM 7.9 mg/dL (8.5-10.1); CREATININE SERUM 1.03 mg/dL (0.70-1.30); GFR 73.92; MAGNESIUM 1.9 mg/dL (1.8-2.4); POTASSIUM 3.86 mEq/L (3.5-5.1)
[2023-08-26 09:59] LABS: PLATELET COUNT 40 K/uL (150-450)
[2023-08-27] MEDS ORDERED: fentaNYL 12 MCG PATCH.TD72 TD SCH (09:00)
[2023-08-28] MEDS ORDERED: MORPHINE SULFATE 2 MG/ML CARTRIDGE IV STA (08:55)
[2023-08-28] MEDS ORDERED: MORPHINE SULFATE 2 MG/ML CARTRIDGE IV PRN (09:02)
[2023-08-28] MEDS ORDERED: fentaNYL 25 MCG PATCH.TD72 TD SCH (12:00)
[2023-08-28 13:09] LABS: INR 1.26
[2023-08-29 09:23] LABS: HEMATOCRIT 25.2 % (39.0-48.0); MEAN CELL VOLUME 101.6 fL (80.0-100.00); MEAN CORPUSCULAR HGB CONC 35.3 g/dl (32.0-36.0); RED BLOOD COUNT 2.48 M/uL (4.00-6.00); RED CELL DISTRIBUTION WIDTH 16.3 % (11.5-14.5)
[2023-08-29 09:32] LABS: MEAN CORPUSCULAR HEMOGLOBIN 35.8 pg (27.00-32.0)
[2023-08-29 09:33] LABS: HEMOGLOBIN 8.9 g/dL (13-16.00); PLATELET COUNT 39 K/uL (150-450)
[2023-08-30] MEDS ORDERED: MORPHINE SULFATE 2 MG/ML CARTRIDGE IV PRN (10:45)
[2023-08-30] MEDS ORDERED: ONDANSETRON HCL 2 MG/ML VIAL IV PRN (10:45)
[2023-08-30] MEDS ORDERED: LACTULOSE 20 G/30 ML BLIST.PACK PO SCH (21:00)
[2023-08-31] MEDS ORDERED: LACTULOSE 20 G/30 ML BLIST.PACK PO SCH (21:00)
[2023-09-01 08:37] LABS: CALCIUM 8.5 mg/dL (8.5-10.1); CREATININE SERUM 1.01 mg/dL (0.70-1.30); GFR 75.35; MAGNESIUM 2.1 mg/dL (1.8-2.4); POTASSIUM 4.01 mEq/L (3.5-5.1)
[2023-09-01 09:05] LABS: HEMATOCRIT 25.2 % (39.0-48.0); MEAN CELL VOLUME 99.9 fL (80.0-100.00); MEAN CORPUSCULAR HGB CONC 35.4 g/dl (32.0-36.0); RED BLOOD COUNT 2.52 M/uL (4.00-6.00)
[2023-09-01 10:12] LABS: HEMOGLOBIN 8.9 g/dL (13-16.00); MEAN CORPUSCULAR HEMOGLOBIN 35.3 pg (27.00-32.0)
[2023-09-01 10:13] LABS: PLATELET COUNT 36 K/uL (150-450)
[2023-09-02 15:10] LABS: HEMATOCRIT 25.4 % (39.0-48.0); MEAN CELL VOLUME 100.6 fL (80.0-100.00); MEAN CORPUSCULAR HGB CONC 34.8 g/dl (32.0-36.0); RED BLOOD COUNT 2.53 M/uL (4.00-6.00); RED CELL DISTRIBUTION WIDTH 15.9 % (11.5-14.5)
[2023-09-02 15:24] LABS: MEAN CORPUSCULAR HEMOGLOBIN 34.7 pg (27.00-32.0)
[2023-09-02 15:25] LABS: HEMOGLOBIN 8.8 g/dL (13-16.00); PLATELET COUNT 46 K/uL (150-450)
[2023-09-02] MEDS ORDERED: MORPHINE SULFATE 2 MG/ML CARTRIDGE IV PRN (20:15)
[2023-09-02] MEDS ORDERED: fentaNYL 25 MCG PATCH.TD72 TD SCH (20:15)
[2023-09-05] MEDS ORDERED: MORPHINE SULFATE 2 MG/ML CARTRIDGE IV PRN (03:00)
[2023-09-06] MEDS ORDERED: ONDANSETRON HCL 2 MG/ML VIAL IV PRN (01:15)
[2023-09-06 12:49] LABS: HEMATOCRIT 24.5 % (39.0-48.0); MEAN CELL VOLUME 99.1 fL (80.0-100.00); MEAN CORPUSCULAR HGB CONC 35.1 g/dl (32.0-36.0); RED BLOOD COUNT 2.48 M/uL (4.00-6.00); RED CELL DISTRIBUTION WIDTH 15.7 % (11.5-14.5)
[2023-09-06] MEDS ORDERED: SIMETHICONE 125 MG CAPSULE PO SCH (13:00)
[2023-09-06 13:38] LABS: MEAN CORPUSCULAR HEMOGLOBIN 34.6 pg (27.00-32.0)
[2023-09-06 13:39] LABS: HEMOGLOBIN 8.6 g/dL (13-16.00); PLATELET COUNT 37 K/uL (150-450)
[2023-09-06 13:40] LABS: ALBUMIN 2.5 gm/dL (3.4-5.0); BILIRUBIN TOTAL 1.69 mg/dL (0.3-1.2); CALCIUM 8.5 mg/dL (8.5-10.1); CREATININE SERUM 0.93 mg/dL (0.70-1.30); GFR 82.88; GLOBULINA 2.5 G/DL (2.4-3.5); POTASSIUM 3.99 mEq/L (3.5-5.1)
[2023-09-06] MEDS ORDERED: LACTULOSE 20 G/30 ML BLIST.PACK PO NR (17:53)
[2023-09-06] MEDS ORDERED: fentaNYL 25 MCG PATCH.TD72 TD SCH (18:00)
[2023-09-06] MEDS ORDERED: LACTULOSE 20 G/30 ML BLIST.PACK PO SCH (21:00)
[2023-09-07] MEDS ORDERED: MORPHINE SULFATE 4 MG/ML CARTRIDGE IV PRN (14:00)
[2023-09-08 08:36] LABS: HEMATOCRIT 25.9 % (39.0-48.0); HEMOGLOBIN 9.1 g/dL (13-16.00); MEAN CELL VOLUME 99.4 fL (80.0-100.00); MEAN CORPUSCULAR HGB CONC 35.2 g/dl (32.0-36.0); RED BLOOD COUNT 2.61 M/uL (4.00-6.00); RED CELL DISTRIBUTION WIDTH 15.6 % (11.5-14.5)
[2023-09-08 09:08] LABS: PLATELET COUNT 13 K/uL (150-450)
== END 2023-09-08 10:20 | disposition designated cancer center or children's hospital (05) | DRG 977 ==
LOC: ER 11:53 → MEDJ 21:25 → SEC-K 21:25 → MEDJ 23:49
PROVIDERS: General Practice; Internal Medicine; ADMIT Internal Medicine; ATTEND Internal Medicine
PROC: BW21ZZZ Computerized Tomography (CT Scan) of Abdomen and Pelvis (ICD-10-PCS; principal; 2023-08-10)
PROC: 8E0ZXY6 Isolation (ICD-10-PCS; 2023-08-10)
PROC: 30233R1 Transfusion of Nonautologous Platelets into Peripheral Vein, Percutaneous Approach (ICD-10-PCS; 2023-08-11)
PROC: CD271ZZ Tomographic (Tomo) Nuclear Medicine Imaging of Gastrointestinal Tract using Technetium 99m (Tc-99m) (ICD-10-PCS; 2023-08-12)
PROC: BW40ZZZ Ultrasonography of Abdomen (ICD-10-PCS; 2023-08-15)
PROC: 0DJD8ZZ Inspection of Lower Intestinal Tract, Via Natural or Artificial Opening Endoscopic (ICD-10-PCS; 2023-08-16)
PROC: BW21YZZ Computerized Tomography (CT Scan) of Abdomen and Pelvis using Other Contrast (ICD-10-PCS; 2023-08-27)
DX: D69.6 Thrombocytopenia, unspecified (principal); B20 Human immunodeficiency virus [HIV] disease; K62.6 Ulcer of anus and rectum; K62.5 Hemorrhage of anus and rectum; C46.9 Kaposi's sarcoma, unspecified; E03.9 Hypothyroidism, unspecified; B19.20 Unspecified viral hepatitis C without hepatic coma; K05.10 Chronic gingivitis, plaque induced; K29.70 Gastritis, unspecified, without bleeding; K06.8 Other specified disorders of gingiva and edentulous alveolar ridge

== ENCOUNTER 2023-10-11 19:52 | Inpatient (IN) | payer OTHER ==
[~2023-10-11] VITALS: Ht 172.7 cm; Wt 65.3 kg
--- NOTE | 2023-10-11 21:00 | NUR ---
PACIENTE ALERTA Y ORIENTADO X3. REFIERE COMENZAR CON DOLOR ABOMINAL JUNTO CON SANGRADO RECTAL INTENSO DESDE YOVANY. SE NAHOMI S/V Y SE UBICA.
[2023-10-11] MEDS ORDERED: MORPHINE SULFATE 4 MG/ML VIAL IV ONE (22:45)
[2023-10-11] MEDS ORDERED: 0.9 % SODIUM CHLORIDE 500 ML IV SCH (22:45)
--- NOTE | 2023-10-11 23:57 | NUR ---
SE ORIENTA PTE SOBRE TX MEDICO EL CUAL REFIERE ENTENDER.SE LE EXTRAEN MUESTRAS BAJO MEDIDAS ASEPTICAS,SE CANALIZA [facility]PORT BAJO MEDIDAS ESTERILES.SE ADMINSTRAN MEDICAMENTOS GARCÍA ORDEN MEDICA Y SE JOSE R BAJO OBSERVACION.
[2023-10-12 00:30] LABS: HEMATOCRIT 27.1 % (39.0-48.0); HEMOGLOBIN 9.4 g/dL (13-16.00); MEAN CELL VOLUME 93.3 fL (80.0-100.00); MEAN CORPUSCULAR HEMOGLOBIN 32.6 pg (27.00-32.0); MEAN CORPUSCULAR HGB CONC 34.9 g/dl (32.0-36.0); PLATELET COUNT 83 K/uL (150-450)
[2023-10-12 00:36] LABS: INR 1.17; PARTIAL THROMBOPLASTIN TIME 27.5 SECONDS (22.0-34.0); PROTHROMBIN TIME 12.6 SECONDS (9.0-11.5)
[2023-10-12 00:40] LABS: ALBUMIN 2.5 gm/dL (3.4-5.0); BILIRUBIN TOTAL 2.73 mg/dL (0.3-1.2); BILIRUBIN,CONJUGATED 0.95 mg/dL (0.0-0.2); BILIRUBIN,UNCONJUGATED 1.78 mg/dL (0.0-0.6); CALCIUM 8.2 mg/dL (8.5-10.1); CREATININE SERUM 0.99 mg/dL (0.70-1.30); GFR 77.11; GLOBULINA 3.7 G/DL (2.4-3.5); POTASSIUM 3.88 mEq/L (3.5-5.1); TOTAL PROTEIN 6.2 gm/dL (6.4-8.2)
[2023-10-12 02:43] LABS: URINE APPEARANCE Clear; URINE BILIRRUBIN Negative (NEGATIVE); URINE BLOOD Negative; URINE COLOR Yellow; URINE GLUCOSE Negative (NEGATIVE); URINE KETONE Negative (NEGATIVE); URINE LEUKOCYTE Trace; URINE NITRATE Negative; URINE PROTEIN Negative (NEGATIVE)
[2023-10-12 02:47] LABS: URINE BACTERIA 6.3 uL (0.0-1933); URINE EPITHELIAL CELLS 1.8 uL (0.0-38.8); URINE RBC 12.5 uL (0.0-20.8); URINE WBC 7.3 uL (0.0-23.2)
[2023-10-12 07:15] LABS: HEMATOCRIT 24.8 % (39.0-48.0); MEAN CELL VOLUME 92.3 fL (80.0-100.00); MEAN CORPUSCULAR HGB CONC 35.4 g/dl (32.0-36.0); RED BLOOD COUNT 2.69 M/uL (4.00-6.00); RED CELL DISTRIBUTION WIDTH 18.1 % (11.5-14.5)
[2023-10-12 07:21] LABS: MEAN CORPUSCULAR HEMOGLOBIN 32.7 pg (27.00-32.0)
[2023-10-12 07:22] LABS: HEMOGLOBIN 8.8 g/dL (13-16.00); PLATELET COUNT 74 K/uL (150-450)
--- NOTE | 2023-10-12 07:43 | NUR ---
MASCULINO ALERTA Y ORIENTADO X3 EN SUSSY POSICION MAS BAJA Y BARANDAS ELEVADAS POR SEGURIDAD. PACIENTE RECIBIENDO IVF'S GARCÍA ORDEN MEDICA POR MEDPORT. PENDIENTE CONSULTA CON DR MANUELITO LAZCANO. AL MOMENTO DE LA BENITA DE VITALES PACIENTE LOS REHUSA DE MANERA HOSTIL HACIA EL PERSONAL DE ENFERMERIA.
[2023-10-12] MEDS ORDERED: MORPHINE SULFATE 4 MG/ML VIAL IV STA (07:45)
[2023-10-12] MEDS ORDERED: 0.9 % SODIUM CHLORIDE 1,000 ML IV SCH (15:00)
[2023-10-12] MEDS ORDERED: DIATRIZOATE MEGLUMINE, SODIUM 30 ML BOTTLE PO SCH (15:11)
[2023-10-12] MEDS ORDERED: PANTOPRAZOLE SODIUM 40 MG/VIAL VIAL IV SCH (15:12)
[2023-10-12] MEDS ORDERED: DIATRIZOATE MEGLUMINE, SODIUM 30 ML BOTTLE ONE (15:41)
[2023-10-12 16:04] VITALS: BP 122/79; O2SAT 98
[2023-10-12] MEDS ORDERED: ONDANSETRON HCL 4 MG in 0.9 % SODIUM CHLORIDE 50 ML IV PRN (16:15)
[2023-10-12] MEDS ORDERED: MORPHINE SULFATE 4 MG/ML CARTRIDGE IV SCH (17:00)
[2023-10-12] MEDS ORDERED: SPIRONOLACTONE 25 MG TABLET PO SCH (17:00)
[2023-10-12] MEDS ORDERED: HYDROCORTISONE 2.5% 30 GM TUBE RECTAL SCH (17:00)
[2023-10-13 00:18] VITALS: BP 129/69; O2SAT 98
[2023-10-13 03:00] VITALS: BP 133/68; O2SAT 96
[2023-10-13] MEDS ORDERED: LEVOTHYROXINE SODIUM 25 MCG TABLET PO SCH (06:00)
[2023-10-13 08:01] VITALS: BP 118/61; O2SAT 98
[2023-10-13] MEDS ORDERED: NADOLOL 20 MG TABLET PO SCH (09:00)
[2023-10-13] MEDS ORDERED: DIATRIZOATE MEGLUMINE, SODIUM 30 ML BOTTLE PO NR (09:15)
[2023-10-13 12:06] LABS: MEAN CELL VOLUME 92.7 fL (80.0-100.00); MEAN CORPUSCULAR HEMOGLOBIN 32.2 pg (27.00-32.0); MEAN CORPUSCULAR HGB CONC 34.7 g/dl (32.0-36.0); PLATELET COUNT 87 K/uL (150-450); RED BLOOD COUNT 2.81 M/uL (4.00-6.00); RED CELL DISTRIBUTION WIDTH 17.8 % (11.5-14.5)
[2023-10-13 12:12] LABS: INR 1.21; PARTIAL THROMBOPLASTIN TIME 32.2 SECONDS (22.0-34.0)
[2023-10-13 12:31] LABS: ALBUMIN 2.3 gm/dL (3.4-5.0); BILIRUBIN TOTAL 3.22 mg/dL (0.3-1.2); BILIRUBIN,CONJUGATED 1.02 mg/dL (0.0-0.2); BILIRUBIN,UNCONJUGATED 2.2 mg/dL (0.0-0.6); C-REACTIVE PROTEIN 4.89 MG/DL (0.00-0.29); CALCIUM 7.8 mg/dL (8.5-10.1); CHOL HDL RATIO 2.9 (0-5.0); CREATININE SERUM 0.82 mg/dL (0.70-1.30); GFR 95.83; PHOSPHOROUS 2.8 mg/dL (2.5-4.9); POTASSIUM 3.98 mEq/L (3.5-5.1); PROSTATIC SPECIFIC ANTIGEN 0.155 NG/ML (0.010-4.00); T4 FREE 1.19 NG/ML (0.76-1.46); TOTAL PROTEIN 5.5 gm/dL (6.4-8.2); TSH 3.6 uIU/mL (0.358-3.74)
[2023-10-13 12:36] LABS: ERYTHROCYTE SEDIMENTATION RATE 3 mm/hr
[2023-10-13 16:33] VITALS: BP 123/56; O2SAT 95
[2023-10-14] VITALS: BP 117/66; O2SAT 97
[2023-10-14] MEDS ORDERED: ROPINIROLE PO SCH (07:00)
[2023-10-14 08:45] LABS: BILIRUBIN TOTAL 4.02 mg/dL (0.3-1.2); BILIRUBIN,CONJUGATED 1.37 mg/dL (0.0-0.2); BILIRUBIN,UNCONJUGATED 2.65 mg/dL (0.0-0.6)
[2023-10-14 16:00] VITALS: BP 104/50; O2SAT 98
[2023-10-14] MEDS ORDERED: ROPINIROLE 0.25 MG PO SCH (17:00)
[2023-10-14] MEDS ORDERED: MORPHINE SULFATE 4 MG/ML CARTRIDGE IV SCH (21:00)
[2023-10-15] VITALS: BP 107/68; O2SAT 98
[2023-10-15] MEDS ORDERED: HYDROCORTISONE 2.5% 30 GM TUBE RECTAL SCH (09:00)
[2023-10-15 09:46] VITALS: BP 104/48; O2SAT 98
[2023-10-15 19:17] VITALS: BP 106/64
[2023-10-16 03:11] VITALS: BP 103/69; O2SAT 97
[2023-10-16] MEDS ORDERED: PANTOPRAZOLE SODIUM 40 MG TABLET.DR PO SCH (09:00)
[2023-10-16 09:13] VITALS: BP 94/63
[2023-10-16 17:57] VITALS: BP 84/53
[2023-10-16] MEDS ORDERED: METHYLPREDNISOLONE SOD SUCC 40 MG VIAL IV SCH (21:00)
[2023-10-16] MEDS ORDERED: LORazepam 0.5 MG TABLET PO SCH (21:00)
[2023-10-16] MEDS ORDERED: HYDROCORTISONE ACETATE 25 MG/SUPP.RECT SUPP.RECT RECTAL SCH (23:23)
[2023-10-17 01:31] VITALS: BP 100/53; O2SAT 97
[2023-10-17 06:02] VITALS: BP 110/70; O2SAT 98
[2023-10-17 09:14] VITALS: BP 104/62
[2023-10-17 10:26] LABS: HEMATOCRIT 27.2 % (39.0-48.0); HEMOGLOBIN 9.6 g/dL (13-16.00); MEAN CELL VOLUME 92.6 fL (80.0-100.00); MEAN CORPUSCULAR HEMOGLOBIN 32.5 pg (27.00-32.0); MEAN CORPUSCULAR HGB CONC 35.2 g/dl (32.0-36.0); RED BLOOD COUNT 2.94 M/uL (4.00-6.00); RED CELL DISTRIBUTION WIDTH 17.9 % (11.5-14.5)
[2023-10-17 10:34] LABS: PLATELET COUNT 86 K/uL (150-450)
[2023-10-17 17:32] VITALS: BP 113/66
[2023-10-17] MEDS ORDERED: ONDANSETRON HCL 4 MG in 0.9 % SODIUM CHLORIDE 50 ML IV PRN (19:45)
[2023-10-18 02:22] VITALS: BP 100/63; O2SAT 97
[2023-10-18 06:53] VITALS: BP 100/60; O2SAT 97
[2023-10-18] MEDS ORDERED: PANTOPRAZOLE SODIUM 40 MG TABLET.DR PO SCH (09:00)
[2023-10-18 09:13] VITALS: BP 107/61; O2SAT 100
[2023-10-18 10:25] LABS: ALBUMIN 2.6 gm/dL (3.4-5.0); BILIRUBIN TOTAL 1.89 mg/dL (0.3-1.2); CALCIUM 9.2 mg/dL (8.5-10.1); CREATININE SERUM 0.78 mg/dL (0.70-1.30); GFR 101.53; GLOBULINA 4.1 G/DL (2.4-3.5); POTASSIUM 4.42 mEq/L (3.5-5.1); TOTAL PROTEIN 6.7 gm/dL (6.4-8.2)
[2023-10-18 19:05] VITALS: BP 96/57
[2023-10-18] MEDS ORDERED: LORazepam 1 MG TABLET PO SCH (21:00)
[2023-10-19] MEDS ORDERED: MORPHINE SULFATE 4 MG/ML CARTRIDGE IV PRN (02:15)
[2023-10-19 03:38] VITALS: BP 90/45; O2SAT 96
[2023-10-19 10:11] VITALS: BP 118/77
[2023-10-19 19:10] VITALS: BP 103/63; O2SAT 97
[2023-10-20 00:03] VITALS: BP 103/61; O2SAT 96
[2023-10-20] MEDS ORDERED: LORazepam 0.5 MG TABLET PO STA (00:11)
[2023-10-20 02:10] VITALS: BP 98/64; O2SAT 97
[2023-10-20] MEDS ORDERED: IRON/V.C/V.B12/FOLIC A/VIT. E 1 CAPL CAPLET PO SCH (09:00)
[2023-10-20 09:30] VITALS: BP 112/76
[2023-10-20] MEDS ORDERED: NADOLOL 20 MG TABLET PO STA (13:37)
[2023-10-20 17:03] LABS: HEMATOCRIT 32.4 % (39.0-48.0); HEMOGLOBIN 11.2 g/dL (13-16.00); MEAN CELL VOLUME 94.4 fL (80.0-100.00); MEAN CORPUSCULAR HEMOGLOBIN 32.5 pg (27.00-32.0); MEAN CORPUSCULAR HGB CONC 34.5 g/dl (32.0-36.0); PLATELET COUNT 103 K/uL (150-450); RED BLOOD COUNT 3.44 M/uL (4.00-6.00); RED CELL DISTRIBUTION WIDTH 19.1 % (11.5-14.5)
[2023-10-20 20:30] VITALS: BP 112/65; O2SAT 97
[2023-10-20] MEDS ORDERED: LORazepam 1 MG TABLET PO SCH (21:00)
[2023-10-21 01:57] VITALS: BP 131/68; O2SAT 100
[2023-10-21 07:50] LABS: HEMATOCRIT 32.9 % (39.0-48.0); HEMOGLOBIN 11.4 g/dL (13-16.00); MEAN CELL VOLUME 95.2 fL (80.0-100.00); MEAN CORPUSCULAR HEMOGLOBIN 32.9 pg (27.00-32.0); MEAN CORPUSCULAR HGB CONC 34.5 g/dl (32.0-36.0); RED BLOOD COUNT 3.45 M/uL (4.00-6.00); RED CELL DISTRIBUTION WIDTH 19.3 % (11.5-14.5)
[2023-10-21 07:54] LABS: PLATELET COUNT 95 K/uL (150-450)
[2023-10-21 08:38] LABS: ALBUMIN 2.6 gm/dL (3.4-5.0); BILIRUBIN TOTAL 1.27 mg/dL (0.3-1.2); CALCIUM 8.8 mg/dL (8.5-10.1); CREATININE SERUM 0.89 mg/dL (0.70-1.30); GFR 87.19; GLOBULINA 3.5 G/DL (2.4-3.5); MAGNESIUM 2.3 mg/dL (1.8-2.4); PHOSPHOROUS 2.9 mg/dL (2.5-4.9); POTASSIUM 4.32 mEq/L (3.5-5.1); TOTAL PROTEIN 6.1 gm/dL (6.4-8.2)
[2023-10-21 09:44] VITALS: BP 122/79
[2023-10-21 16:00] VITALS: BP 108/69
[2023-10-22 02:37] VITALS: BP 103/72
[2023-10-22 09:45] VITALS: BP 93/57; O2SAT 98
[2023-10-22 18:32] VITALS: BP 101/60; O2SAT 97
[2023-10-22] MEDS ORDERED: LORazepam 1 MG TABLET PO ONE (22:45)
[2023-10-23 02:00] VITALS: BP 132/79
[2023-10-23] MEDS ORDERED: MORPHINE SULFATE 2 MG/ML CARTRIDGE IV STA (04:07)
[2023-10-23] MEDS ORDERED: MORPHINE SULFATE 4 MG/ML CARTRIDGE IV PRN (04:15)
[2023-10-23 08:57] VITALS: BP 133/81
[2023-10-23] MEDS ORDERED: OxyCODONE HCL ER 10MG TAB (OxyCONTIN) PO SCH (09:10)
[2023-10-23] MEDS ORDERED: POLYETHYLENE GLYCOL 3350 238 GM POWDER PO NR (14:05)
[2023-10-23 18:24] VITALS: BP 114/77; O2SAT 98
[2023-10-23] MEDS ORDERED: CLONAZEPAM 1 MG TABLET PO SCH (21:00)
[2023-10-24 02:00] VITALS: BP 98/63
[2023-10-24] MEDS ORDERED: NA PHOS,M-B/NA PHOS,DI-BA 1 BOTTLE ENEMA RECTAL NR (06:00)
[2023-10-24 09:24] VITALS: BP 110/60
[2023-10-24] MEDS ORDERED: fentaNYL CITRATE 50 MCG/ML AMPUL IV ONE (13:30)
[2023-10-24] MEDS ORDERED: MIDAZOLAM HCL 2 MG/2 ML VIAL IV ONE (13:30)
[2023-10-24] MEDS ORDERED: DIPHENHYDRAMINE HCL 50 MG/ML VIAL 1ML IV ONE (13:30)
[2023-10-24 18:21] VITALS: BP 122/78
[2023-10-25 01:17] VITALS: BP 117/86
[2023-10-25 10:35] VITALS: BP 128/76
[2023-10-25 11:53] LABS: HEMOGLOBIN 11.7 g/dL (13-16.00); MEAN CELL VOLUME 95.4 fL (80.0-100.00); MEAN CORPUSCULAR HEMOGLOBIN 32.8 pg (27.00-32.0); MEAN CORPUSCULAR HGB CONC 34.3 g/dl (32.0-36.0); RED BLOOD COUNT 3.56 M/uL (4.00-6.00); RED CELL DISTRIBUTION WIDTH 19.5 % (11.5-14.5)
[2023-10-25 11:54] LABS: PLATELET COUNT 82 K/uL (150-450)
[2023-10-25 12:25] LABS: ALBUMIN 2.6 gm/dL (3.4-5.0); BILIRUBIN TOTAL 2.68 mg/dL (0.3-1.2); CALCIUM 8.6 mg/dL (8.5-10.1); GFR 76.22; GLOBULINA 3.2 G/DL (2.4-3.5); POTASSIUM 3.97 mEq/L (3.5-5.1); TOTAL PROTEIN 5.8 gm/dL (6.4-8.2)
[2023-10-25] MEDS ORDERED: MORPHINE SULFATE 2 MG/ML CARTRIDGE IV PRN (16:15)
[2023-10-25 17:17] VITALS: BP 107/67
[2023-10-26 02:00] VITALS: BP 146/90
[2023-10-26] MEDS ORDERED: OxyCODONE HCL ER 10MG TAB (OxyCONTIN) PO SCH (09:00)
[2023-10-26 09:24] VITALS: BP 116/75; O2SAT 96
[2023-10-26 17:38] VITALS: BP 143/91
[2023-10-27 02:00] VITALS: BP 97/65
[2023-10-27] MEDS ORDERED: CEFTRIAXONE SODIUM 2,000 MG VIAL IV SCH (09:00)
[2023-10-27 09:38] VITALS: BP 105/74
[2023-10-27 10:05] LABS: PH,URINE 6.5 (5.0-8.0); URINE APPEARANCE Turbid; URINE BILIRRUBIN Negative (NEGATIVE); URINE BLOOD Negative; URINE COLOR Yellow; URINE GLUCOSE Negative (NEGATIVE); URINE KETONE Negative (NEGATIVE); URINE LEUKOCYTE Negative; URINE NITRATE Negative; URINE PROTEIN 30 (NEGATIVE)
[2023-10-27 10:09] LABS: URINE BACTERIA 1749.3 uL (0.0-1933); URINE RBC 286.4 uL (0.0-20.8); URINE WBC 114.8 uL (0.0-23.2)
[2023-10-27 10:59] LABS: URINE CRYSTALS FEW /HPF
[2023-10-27 17:29] VITALS: BP 160/64
[2023-10-28] MEDS ORDERED: MORPHINE SULFATE 2 MG/ML CARTRIDGE IV PRN (00:30)
[2023-10-28 02:00] VITALS: BP 97/65
[2023-10-28 09:13] VITALS: BP 113/77
[2023-10-28 17:39] VITALS: BP 111/80; O2SAT 99
[2023-10-28 23:09] LABS: hiv 1 < 20 (.)
[2023-10-29 02:32] VITALS: BP 120/72; O2SAT 97
[2023-10-29 09:14] VITALS: BP 151/89; O2SAT 98
[2023-10-29 15:40] VITALS: BP 94/61; O2SAT 95
[2023-10-29] MEDS ORDERED: BUPIVACAINE HCL/MPF 0.5% 30ML VIAL ONE (19:38)
[2023-10-29 20:02] LABS: HEMATOCRIT 33.5 % (39.0-48.0); HEMOGLOBIN 12.1 g/dL (13-16.00); MEAN CELL VOLUME 94.6 fL (80.0-100.00); MEAN CORPUSCULAR HEMOGLOBIN 34.1 pg (27.00-32.0); RED BLOOD COUNT 3.54 M/uL (4.00-6.00); RED CELL DISTRIBUTION WIDTH 20.8 % (11.5-14.5)
[2023-10-29 20:03] LABS: PLATELET COUNT 51 K/uL (150-450)
[2023-10-29 20:24] LABS: INR 1.1; PARTIAL THROMBOPLASTIN TIME 29.2 SECONDS (22.0-34.0); PROTHROMBIN TIME 11.9 SECONDS (9.0-11.5)
[2023-10-29 20:32] LABS: ALBUMIN 2.6 gm/dL (3.4-5.0); BILIRUBIN TOTAL 1.83 mg/dL (0.3-1.2); CALCIUM 8.6 mg/dL (8.5-10.1); CREATININE SERUM 0.73 mg/dL (0.70-1.30); GFR 109.6; GLOBULINA 3.3 G/DL (2.4-3.5); MAGNESIUM 2.3 mg/dL (1.8-2.4); POTASSIUM 4.75 mEq/L (3.5-5.1); TOTAL PROTEIN 5.9 gm/dL (6.4-8.2)
[2023-10-30 02:00] VITALS: BP 121/88; O2SAT 98
[2023-10-30] MEDS ORDERED: MORPHINE SULFATE 4 MG/ML CARTRIDGE IV STA (02:09)
[2023-10-30] MEDS ORDERED: MORPHINE SULFATE 2 MG/ML CARTRIDGE IV PRN (02:15)
[2023-10-30 07:37] VITALS: BP 132/82
[2023-10-30 20:33] VITALS: BP 100/61; O2SAT 98
[2023-10-31 01:41] VITALS: BP 104/70
[2023-10-31 08:00] VITALS: BP 89/51
[2023-10-31 10:25] VITALS: BP 90/50
[2023-10-31 18:32] VITALS: BP 108/62
[2023-11-01 02:12] VITALS: BP 121/70
[2023-11-01 09:36] VITALS: BP 126/82
[2023-11-01] MEDS ORDERED: MORPHINE SULFATE 2 MG/ML CARTRIDGE IV PRN (16:00)
[2023-11-01 17:36] VITALS: BP 116/73; O2SAT 98
[2023-11-01] MEDS ORDERED: OxyCODONE HCL ER 10MG TAB (OxyCONTIN) PO SCH (21:00)
[2023-11-01] MEDS ORDERED: CLONAZEPAM 1 MG TABLET PO STA (22:42)
[2023-11-02 02:49] VITALS: BP 107/69; O2SAT 93
[2023-11-02 09:42] VITALS: BP 114/80
[2023-11-02 17:18] VITALS: BP 107/70
[2023-11-02] MEDS ORDERED: CLONAZEPAM 1 MG TABLET PO SCH (21:00)
[2023-11-03 03:10] VITALS: BP 100/65; O2SAT 96
[2023-11-03 09:58] VITALS: BP 108/66
[2023-11-03 14:17] LABS: HEMATOCRIT 28.2 % (39.0-48.0); HEMOGLOBIN 9.9 g/dL (13-16.00); MEAN CELL VOLUME 96.8 fL (80.0-100.00); MEAN CORPUSCULAR HEMOGLOBIN 33.9 pg (27.00-32.0); PLATELET COUNT 83 K/uL (150-450); RED BLOOD COUNT 2.91 M/uL (4.00-6.00); RED CELL DISTRIBUTION WIDTH 21.7 % (11.5-14.5)
[2023-11-03 14:43] LABS: ALBUMIN 2.4 gm/dL (3.4-5.0); BILIRUBIN TOTAL 1.63 mg/dL (0.3-1.2); CREATININE SERUM 1.01 mg/dL (0.70-1.30); GFR 75.35; GLOBULINA 2.8 G/DL (2.4-3.5); MAGNESIUM 2.1 mg/dL (1.8-2.4); PHOSPHOROUS 2.3 mg/dL (2.5-4.9); POTASSIUM 3.7 mEq/L (3.5-5.1); TOTAL PROTEIN 5.2 gm/dL (6.4-8.2)
[2023-11-03 19:04] VITALS: BP 96/59; O2SAT 95
[2023-11-04 02:24] VITALS: BP 101/64; O2SAT 98
[2023-11-04 09:00] VITALS: BP 89/57
[2023-11-04] MEDS ORDERED: fentaNYL CITRATE 50 MCG/ML AMPUL IV PUSH ONE (16:00)
[2023-11-04 18:14] VITALS: BP 100/66; O2SAT 98
[2023-11-04 22:06] VITALS: BP 111/67; O2SAT 97
[2023-11-05 01:57] VITALS: BP 97/66; O2SAT 96
[2023-11-05 08:33] VITALS: BP 95/57
[2023-11-05] MEDS ORDERED: SPIRONOLACTONE25 MG PO (09:02)
[2023-11-05] MEDS ORDERED: NADOLOL20 MG PO (09:02)
[2023-11-05] MEDS ORDERED: OXYCONTIN10 M1 PO ×2 (09:02→09:04)
[2023-11-05] MEDS ORDERED: ROPINIROLE HC0.25 MG PO (09:04)
[2023-11-05] MEDS ORDERED: HYDROCORTISO453.6 G1 RECTAL (09:06)
[2023-11-05] MEDS ORDERED: CLONAZEPAM1 MG PO (09:08)
[2023-11-05] MEDS ORDERED: INTESTINEX680 M1 PO (09:12)
[2023-11-05] MEDS ORDERED: LEVOFLOXACIN750 MG PO (09:12)
== END 2023-11-05 10:17 | disposition home or self-care (01) | DRG 378 ==
LOC: ER 19:54 → MEDJ 10-12 16:31 → SURH 10-12 16:31 → SEC-K 10-12 16:31 → SURH 10-13 02:10 → MEDJ 10-15 15:59
PROVIDERS: Emergency Medicine; Internal Medicine; Internal Medicine Hematology & Oncology; Student in an Organized Health Care Education/Training Program; ADMIT Internal Medicine; ATTEND Internal Medicine
PROC: BW21YZZ Computerized Tomography (CT Scan) of Abdomen and Pelvis using Other Contrast (ICD-10-PCS; 2023-10-13)
PROC: 0DJD8ZZ Inspection of Lower Intestinal Tract, Via Natural or Artificial Opening Endoscopic (ICD-10-PCS; principal; 2023-10-24)
PROC: 0JH63WZ Insertion of Totally Implantable Vascular Access Device into Chest Subcutaneous Tissue and Fascia, Percutaneous Approach (ICD-10-PCS; 2023-10-29)
PROC: 02HV33Z Insertion of Infusion Device into Superior Vena Cava, Percutaneous Approach (ICD-10-PCS; 2023-10-29)
PROC: 02PYX3Z Removal of Infusion Device from Great Vessel, External Approach (ICD-10-PCS; 2023-10-29)
PROC: 05H533Z Insertion of Infusion Device into Right Subclavian Vein, Percutaneous Approach (ICD-10-PCS; 2023-10-29)
PROC: B546ZZA Ultrasonography of Right Subclavian Vein, Guidance (ICD-10-PCS; 2023-10-29)
DX: K92.2 Gastrointestinal hemorrhage, unspecified (principal); B19.10 Unspecified viral hepatitis B without hepatic coma; B20 Human immunodeficiency virus [HIV] disease; D61.818 Other pancytopenia; D46.9 Myelodysplastic syndrome, unspecified; F43.20 Adjustment disorder, unspecified; E03.9 Hypothyroidism, unspecified; K76.9 Liver disease, unspecified

== ENCOUNTER 2023-11-06 00:25 | Emergency (ER) | payer OTHER ==
[~2023-11-06] VITALS: Ht 167.6 cm; Wt 63.5 kg
[~2023-11-06 00:25] MED LIST changes: +CLONAZEPAM1 MG PO; +HYDROCORTISO453.6 G1 RECTAL; +NADOLOL20 MG PO; +OXYCONTIN10 M1 PO; +ROPINIROLE HC0.25 MG PO; +SPIRONOLACTONE25 MG PO
[2023-11-06] MEDS ORDERED: KETOROLAC TROMETHAMINE 30 MG VIAL IV STA (01:30)
[2023-11-06] MEDS ORDERED: HYOSCYAMINE SULFATE 0.125 MG TAB.SUBL SL STA (01:31)
[2023-11-06] MEDS ORDERED: PROMETHAZINE HCL 50 MG/ML AMPUL IM STA (01:31)
[2023-11-06] MEDS ORDERED: FAMOTIDINE/PF 20 MG/2 ML VIAL IV PUSH STA (01:32)
[2023-11-06] MEDS ORDERED: LACTOBACILLUS ACIDOPHILUS 1 CAP CAP PO STA (01:33)
[2023-11-06] MEDS ORDERED: 0.9 % SODIUM CHLORIDE 1,000 ML IV ONE (01:45)
[2023-11-06] MEDS ORDERED: PROMETHAZINE HCL 50 MG/ML AMPUL IM ONE (01:47)
[2023-11-06] MEDS ORDERED: KETOROLAC TROMETHAMINE 30 MG VIAL ONE (01:47)
[2023-11-06] MEDS ORDERED: LACTOBACILLUS ACIDOPHILUS 1 CAP CAP PO ONE (01:48)
[2023-11-06] MEDS ORDERED: HYOSCYAMINE SULFATE 0.125 MG TAB.SUBL ONE (01:48)
[2023-11-06] MEDS ORDERED: FAMOTIDINE/PF 20 MG/2 ML VIAL ONE (01:48)
[2023-11-06 02:48] LABS: HEMATOCRIT 26.1 % (39.0-48.0); MEAN CORPUSCULAR HGB CONC 35.8 g/dl (32.0-36.0); RED BLOOD COUNT 2.72 M/uL (4.00-6.00); RED CELL DISTRIBUTION WIDTH 22.2 % (11.5-14.5)
[2023-11-06 02:57] LABS: HEMOGLOBIN 9.3 g/dL (13-16.00); MEAN CORPUSCULAR HEMOGLOBIN 34.1 pg (27.00-32.0); PLATELET COUNT 70 K/uL (150-450)
[2023-11-06 03:01] LABS: CALCIUM 8.5 mg/dL (8.5-10.1); CREATININE SERUM 0.81 mg/dL (0.70-1.30); GFR 97.2; POTASSIUM 3.9 mEq/L (3.5-5.1)
[2023-11-06 06:19] LABS: PH,URINE 7.5 (5.0-8.0); URINE APPEARANCE Cloudy; URINE BILIRRUBIN Negative (NEGATIVE); URINE BLOOD Negative; URINE COLOR Yellow; URINE GLUCOSE Negative (NEGATIVE); URINE KETONE Negative (NEGATIVE); URINE LEUKOCYTE Negative; URINE NITRATE Negative; URINE PROTEIN Negative (NEGATIVE)
[2023-11-06 06:22] LABS: URINE EPITHELIAL CELLS 1.8 uL (0.0-38.8); URINE RBC 18.3 uL (0.0-20.8); URINE WBC 5.8 uL (0.0-23.2)
[2023-11-06 06:25] LABS: URINE BACTERIA 3.7 uL (0.0-1933)
[2023-11-06] MEDS ORDERED: OxyCODONE HCL ER 10MG TAB (OxyCONTIN) PO ONE (09:15)
== END 2023-11-06 09:44 | disposition home or self-care (01) ==
LOC: ER 00:25
PROVIDERS: General Practice
DX: R11.10 Vomiting, unspecified (principal); R19.7 Diarrhea, unspecified; R10.9 Unspecified abdominal pain; Z88.5 Allergy status to narcotic agent; Z88.6 Allergy status to analgesic agent
CPT/HCPCS: 36415; 96365; 96366; 96372; 99282; J1885; J2550; J3490; J7030

== ENCOUNTER 2024-02-01 02:24 | Inpatient (IN) | payer OTHER ==
[~2024-02-01] VITALS: Ht 172.7 cm; Wt 68.0 kg
[2024-02-01] MEDS ORDERED: ZOLPIDEM TARTRA10 MG PO (02:48)
[2024-02-01] MEDS ORDERED: RINGERS SOLUTION,LACTATED 1,000 ML IV STA (04:18)
[2024-02-01] MEDS ORDERED: PROMETHAZINE HCL 50 MG/ML AMPUL IM STA (04:19)
[2024-02-01] MEDS ORDERED: MEPERIDINE HCL/PF 50 MG/ML VIAL IM STA (04:19)
[2024-02-01] MEDS ORDERED: PROMETHAZINE HCL 50 MG/ML AMPUL IM ONE (04:37)
[2024-02-01 06:34] LABS: HEMATOCRIT 28.6 % (39.0-48.0); HEMOGLOBIN 10.3 g/dL (13-16.00); MEAN CELL VOLUME 97.3 fL (80.0-100.00); RED BLOOD COUNT 2.94 M/uL (4.00-6.00)
[2024-02-01 06:37] LABS: ERYTHROCYTE SEDIMENTATION RATE < 1 mm/hr; PLATELET COUNT 87 K/uL (150-450); RED CELL DISTRIBUTION WIDTH 16.6 % (11.5-14.5)
[2024-02-01 06:52] LABS: INR 1.15; PROTHROMBIN TIME 12.4 SECONDS (9.0-11.5)
[2024-02-01 06:58] LABS: BILIRUBIN TOTAL 2.24 mg/dL (0.3-1.2); CALCIUM 8.5 mg/dL (8.5-10.1); CREATININE SERUM 0.96 mg/dL (0.70-1.30); GFR 79.9; GLOBULINA 2.5 G/DL (2.4-3.5); POTASSIUM 3.09 mEq/L (3.5-5.1); TOTAL PROTEIN 5.5 gm/dL (6.4-8.2)
[2024-02-01 07:02] LABS: D DIMER 6.71 MG/L; PARTIAL THROMBOPLASTIN TIME 28.1 SECONDS (22.0-34.0)
[2024-02-01] MEDS ORDERED: PANTOPRAZOLE SODIUM 40 MG/VIAL VIAL IV PUSH SCH (09:47)
[2024-02-01] MEDS ORDERED: 0.9 % SODIUM CHLORIDE 1,000 ML IV SCH (10:00)
[2024-02-01] MEDS ORDERED: PROMETHAZINE HCL 25 MG/ML AMPUL IM PRN (10:00)
[2024-02-01] MEDS ORDERED: ENALAPRILAT DIHYDRATE 1.25 MG/ML VIAL IV PRN (10:00)
[2024-02-01] MEDS ORDERED: VANCOMYCIN HCL 1,000 MG VIAL IV SCH (10:07)
[2024-02-01] MEDS ORDERED: SULFAMETHOXAZOLE/TRIMETHOPRIM DS 1 TAB PO SCH (10:08)
[2024-02-01] MEDS ORDERED: CEFTRIAXONE SODIUM 1,000 MG in 0.9 % SODIUM CHLORIDE 100 ML IV SCH (10:12)
[2024-02-01] MEDS ORDERED: ONDANSETRON HCL 4 MG in 0.9 % SODIUM CHLORIDE 50 ML IV PRN (10:15)
[2024-02-01 16:49] VITALS: BP 100/68
[2024-02-01] MEDS ORDERED: MEPERIDINE HCL/PF 50 MG/ML VIAL IM PRN (17:00)
[2024-02-01] MEDS ORDERED: PATIENTS OWN MEDICATION (MEDICAMENTO EN PISO) PO SCH (17:00)
[2024-02-01 18:26] VITALS: BP 118/77; O2SAT 98
[2024-02-01] MEDS ORDERED: ZOLPIDEM TARTRATE 10 MG TABLET PO SCH (21:00)
[2024-02-02 03:30] VITALS: BP 90/60; O2SAT 98
[2024-02-02] MEDS ORDERED: LEVOTHYROXINE SODIUM 50 MCG TABLET PO SCH (06:00)
[2024-02-02 10:49] VITALS: BP 83/47; O2SAT 96
[2024-02-02 18:08] VITALS: BP 107/68
[2024-02-03 02:04] VITALS: BP 116/72; O2SAT 97
[2024-02-03 09:00] VITALS: BP 102/61; O2SAT 98
[2024-02-03 11:30] LABS: HEMATOCRIT 26.6 % (39.0-48.0); HEMOGLOBIN 9.3 g/dL (13-16.00); MEAN CELL VOLUME 98.2 fL (80.0-100.00); MEAN CORPUSCULAR HEMOGLOBIN 34.5 pg (27.00-32.0); MEAN CORPUSCULAR HGB CONC 35.1 g/dl (32.0-36.0); RED BLOOD COUNT 2.71 M/uL (4.00-6.00); RED CELL DISTRIBUTION WIDTH 16.8 % (11.5-14.5)
[2024-02-03 11:33] LABS: PLATELET COUNT 77 K/uL (150-450)
[2024-02-03 11:53] LABS: INR 1.16; PARTIAL THROMBOPLASTIN TIME 31.6 SECONDS (22.0-34.0); PROTHROMBIN TIME 12.5 SECONDS (9.0-11.5)
[2024-02-03 12:31] LABS: ALBUMIN 2.4 gm/dL (3.4-5.0); BILIRUBIN TOTAL 1.14 mg/dL (0.3-1.2); BILIRUBIN,CONJUGATED 0.43 mg/dL (0.0-0.2); BILIRUBIN,UNCONJUGATED 0.71 mg/dL (0.0-0.6); CHOL HDL RATIO 1.9 (0-5.0); MAGNESIUM 2.1 mg/dL (1.8-2.4); T4 FREE 0.85 NG/ML (0.76-1.46); TOTAL PROTEIN 4.9 gm/dL (6.4-8.2)
[2024-02-03 12:32] LABS: C-REACTIVE PROTEIN 1.1 MG/DL (0.00-0.29)
[2024-02-03 12:33] LABS: TSH 4.84 uIU/mL (0.358-3.74)
[2024-02-03 17:43] VITALS: BP 121/76; O2SAT 97
[2024-02-03] MEDS ORDERED: MORPHINE SULFATE 2 MG/ML CARTRIDGE IV PRN (17:45)
[2024-02-03] MEDS ORDERED: OxyCODONE HCL ER 10MG TAB (OxyCONTIN) PO PRN (19:45)
[2024-02-03] MEDS ORDERED: PATIENTS OWN MEDICATION (MEDICAMENTO EN PISO) PO SCH (21:00)
[2024-02-03] MEDS ORDERED: MORPHINE SULFATE 4 MG/ML CARTRIDGE IV PRN (21:15)
[2024-02-04 01:15] VITALS: BP 93/60; O2SAT 98
[2024-02-04] MEDS ORDERED: MORPHINE SULFATE 4 MG/ML CARTRIDGE IV PRN (08:05)
[2024-02-04 08:14] VITALS: BP 123/85; O2SAT 99
[2024-02-04] MEDS ORDERED: PANTOPRAZOLE SODIUM 40 MG TABLET.DR PO SCH (09:00)
[2024-02-04 17:44] VITALS: BP 106/70
[2024-02-05 01:58] VITALS: BP 116/74; O2SAT 95
[2024-02-05 08:55] VITALS: BP 109/71; O2SAT 96
[2024-02-05 19:10] VITALS: BP 138/90
[2024-02-06 02:48] VITALS: BP 108/70; O2SAT 99
[2024-02-06 09:00] VITALS: BP 120/75; O2SAT 98
[2024-02-06] MEDS ORDERED: MORPHINE SULFATE 4 MG/ML CARTRIDGE IV PRN (09:00)
[2024-02-06 18:19] VITALS: BP 100/62; O2SAT 97
[2024-02-07 02:49] VITALS: BP 110/70; O2SAT 96
[2024-02-07 08:56] VITALS: BP 130/106
[2024-02-07 10:10] VITALS: BP 87/53; O2SAT 96
[2024-02-07 21:45] VITALS: BP 109/69; O2SAT 98
[2024-02-08 02:19] VITALS: BP 116/70; O2SAT 95
[2024-02-08 09:28] VITALS: BP 118/76; O2SAT 99
[2024-02-08 09:34] VITALS: BP 118/76; O2SAT 99
[2024-02-08 18:44] VITALS: BP 120/80; O2SAT 96
[2024-02-09 01:46] VITALS: BP 113/69; O2SAT 96
[2024-02-09 08:29] LABS: MEAN CORPUSCULAR HEMOGLOBIN 34.8 pg (27.00-32.0); MEAN CORPUSCULAR HGB CONC 35.9 g/dl (32.0-36.0); RED BLOOD COUNT 2.89 M/uL (4.00-6.00); RED CELL DISTRIBUTION WIDTH 16.2 % (11.5-14.5)
[2024-02-09 08:31] LABS: PLATELET COUNT 78 K/uL (150-450)
[2024-02-09 08:44] LABS: ALBUMIN 2.5 gm/dL (3.4-5.0); BILIRUBIN TOTAL 1.18 mg/dL (0.3-1.2); CREATININE SERUM 0.91 mg/dL (0.70-1.30); GFR 84.98; GLOBULINA 2.7 G/DL (2.4-3.5); POTASSIUM 4.08 mEq/L (3.5-5.1); TOTAL PROTEIN 5.2 gm/dL (6.4-8.2)
[2024-02-09 08:57] VITALS: BP 105/67; O2SAT 98
[2024-02-09 16:43] VITALS: BP 120/77; O2SAT 100
[2024-02-09 21:36] VITALS: BP 151/74; O2SAT 97
[2024-02-10 01:14] VITALS: BP 128/89; O2SAT 97
[2024-02-10 08:56] VITALS: BP 112/60; O2SAT 99
[2024-02-10] MEDS ORDERED: MORPHINE SULFATE 4 MG/ML VIAL IV PRN (14:00)
[2024-02-10 17:46] VITALS: BP 116/78; O2SAT 97
[2024-02-10 21:55] VITALS: BP 137/90; O2SAT 97
[2024-02-11 00:46] VITALS: BP 117/69; O2SAT 98
[2024-02-11 09:48] VITALS: BP 87/54; O2SAT 98
[2024-02-11] MEDS ORDERED: BIKTARVY 50-201 EACH PO (12:21)
[2024-02-11] MEDS ORDERED: ROPINIROLE HC0.25 MG PO (12:22)
[2024-02-11] MEDS ORDERED: PANTOPRAZOLE SO40 MG PO (12:23)
[2024-02-11] MEDS ORDERED: SYNTHROID50 MCG PO (12:23)
[2024-02-11] MEDS ORDERED: CLONAZEPAM1 MG PO (12:24)
[2024-02-11] MEDS ORDERED: ZOLPIDEM TARTRA10 MG PO (12:24)
[2024-02-11 17:17] VITALS: BP 126/83; O2SAT 97
== END 2024-02-11 17:38 | disposition home or self-care (01) | DRG 603 ==
LOC: ER 02:24 → MEDJ 10:49 → SEC-K 10:49 → MEDJ 11:20
PROVIDERS: Internal Medicine; ADMIT Internal Medicine; ATTEND Internal Medicine
PROC: 02HV33Z Insertion of Infusion Device into Superior Vena Cava, Percutaneous Approach (ICD-10-PCS; 2024-02-02)
PROC: B54DZZZ Ultrasonography of Bilateral Lower Extremity Veins (ICD-10-PCS; principal; 2024-02-04)
PROC: B44HZZZ Ultrasonography of Bilateral Lower Extremity Arteries (ICD-10-PCS; 2024-02-04)
DX: L03.116 Cellulitis of left lower limb (principal); B20 Human immunodeficiency virus [HIV] disease; C46.9 Kaposi's sarcoma, unspecified; L97.828 Non-pressure chronic ulcer of other part of left lower leg with other specified severity; K76.89 Other specified diseases of liver; R60.0 Localized edema; D72.818 Other decreased white blood cell count; M79.89 Other specified soft tissue disorders; D46.Z Other myelodysplastic syndromes

== ENCOUNTER 2024-02-13 00:51 | Emergency (ER) | payer OTHER ==
[~2024-02-13] VITALS: Ht 172.7 cm; Wt 65.8 kg
[~2024-02-13 00:51] MED LIST changes: +ZOLPIDEM TARTRA10 MG PO
[2024-02-13 01:01] VITALS: BP 134/89; O2SAT 96
[2024-02-13 04:29] LABS: HEMATOCRIT 30.7 % (39.0-48.0); MEAN CELL VOLUME 95.5 fL (80.0-100.00); MEAN CORPUSCULAR HEMOGLOBIN 34.2 pg (27.00-32.0); MEAN CORPUSCULAR HGB CONC 35.9 g/dl (32.0-36.0); RED BLOOD COUNT 3.21 M/uL (4.00-6.00); RED CELL DISTRIBUTION WIDTH 16.1 % (11.5-14.5)
[2024-02-13 04:38] LABS: PLATELET COUNT 107 K/uL (150-450)
[2024-02-13 04:43] LABS: ALBUMIN 3.4 gm/dL (3.4-5.0); BILIRUBIN TOTAL 2.58 mg/dL (0.3-1.2); BILIRUBIN,CONJUGATED 0.66 mg/dL (0.0-0.2); BILIRUBIN,UNCONJUGATED 1.92 mg/dL (0.0-0.6); CREATININE SERUM 0.98 mg/dL (0.70-1.30); GFR 78.02; GLOBULINA 3.1 G/DL (2.4-3.5); POTASSIUM 3.49 mEq/L (3.5-5.1); TOTAL PROTEIN 6.5 gm/dL (6.4-8.2)
[2024-02-13 06:31] LABS: PH,URINE 6.5 (5.0-8.0); URINE APPEARANCE Clear; URINE BILIRRUBIN Small (NEGATIVE); URINE BLOOD Small; URINE COLOR Dark Yellow; URINE GLUCOSE Negative (NEGATIVE); URINE KETONE Trace (NEGATIVE); URINE LEUKOCYTE Trace; URINE NITRATE Negative; URINE PROTEIN 30 (NEGATIVE)
[2024-02-13 06:35] LABS: URINE BACTERIA 17.1 uL (0.0-1933); URINE EPITHELIAL CELLS 2.6 uL (0.0-38.8); URINE RBC 72.7 uL (0.0-20.8); URINE WBC 9.1 uL (0.0-23.2)
[2024-02-13 07:09] LABS: URINE CAST 0.14 uL (0.0-1.40)
[2024-02-13] MEDS ORDERED: ZYNCOF 20-400120 ML PO (08:03)
[2024-02-13] MEDS ORDERED: DOLOGESIC 500-1 EACH PO (08:03)
[2024-02-13] MEDS ORDERED: BETAMETHASONE D15 G2 TOP (08:10)
== END 2024-02-13 08:12 | disposition home or self-care (01) ==
LOC: ER 00:53
PROVIDERS: General Practice
DX: R53.81 Other malaise (principal); R53.83 Other fatigue; Z20.822 Contact with and (suspected) exposure to COVID-19; E03.8 Other specified hypothyroidism; Z88.5 Allergy status to narcotic agent; Z88.6 Allergy status to analgesic agent

== ENCOUNTER 2024-03-31 21:16 | Inpatient (IN) | payer OTHER ==
[~2024-03-31] VITALS: Ht 172.7 cm; Wt 149.7 kg
[~2024-03-31 21:16] MED LIST changes: +BETAMETHASONE D15 G2 TOP; +DOLOGESIC 500-1 EACH PO; +ZYNCOF 20-400120 ML PO
[2024-03-31] MEDS ORDERED: 0.9 % SODIUM CHLORIDE 1,000 ML IV STA (21:45)
[2024-04-01 00:49] LABS: HEMATOCRIT 29.5 % (39.0-48.0); MEAN CELL VOLUME 93.3 fL (80.0-100.00); MEAN CORPUSCULAR HGB CONC 36.1 g/dl (32.0-36.0); RED BLOOD COUNT 3.16 M/uL (4.00-6.00); RED CELL DISTRIBUTION WIDTH 16.8 % (11.5-14.5)
[2024-04-01 00:52] LABS: INR 1.19; PARTIAL THROMBOPLASTIN TIME 33.5 SECONDS (22.0-34.0); PROTHROMBIN TIME 12.8 SECONDS (9.0-11.5)
[2024-04-01 00:57] LABS: BILIRUBIN TOTAL 2.22 mg/dL (0.3-1.2); CALCIUM 7.8 mg/dL (8.5-10.1); CREATININE SERUM 1.08 mg/dL (0.70-1.30); GFR 69.74; GLOBULINA 2.6 G/DL (2.4-3.5); TOTAL PROTEIN 4.6 gm/dL (6.4-8.2)
[2024-04-01] MEDS ORDERED: MEPERIDINE HCL/PF 50 MG/ML VIAL IM STA (01:10)
[2024-04-01 01:47] LABS: HEMOGLOBIN 10.6 g/dL (13-16.00); MEAN CORPUSCULAR HEMOGLOBIN 33.5 pg (27.00-32.0)
[2024-04-01 01:48] LABS: PLATELET COUNT 65 K/uL (150-450)
[2024-04-01 01:50] LABS: POTASSIUM 2.88 mEq/L (3.5-5.1)
[2024-04-01] MEDS ORDERED: POTASSIUM CHLORIDE/D5-0.9%NACL 40 MEQ/1,000 ML PIGGYBAG IV ONE ×2 (02:00→08:45)
[2024-04-01] MEDS ORDERED: METRONIDAZOLE/SODIUM CHLORIDE 100 ML IV SCH (04:07)
[2024-04-01] MEDS ORDERED: CIPROFLOXACIN IN 5 % DEXTROSE 200 ML IV SCH (04:08)
[2024-04-01] MEDS ORDERED: MORPHINE SULFATE 4 MG/ML VIAL IV ONE (08:45)
[2024-04-01] MEDS ORDERED: DIATRIZOATE MEGLUMINE, SODIUM 30 ML BOTTLE ONE (09:04)
[2024-04-01] MEDS ORDERED: MORPHINE SULFATE 4 MG/ML CARTRIDGE IV ONE (16:00)
[2024-04-01] MEDS ORDERED: METRONIDAZOLE/SODIUM CHLORIDE 500 MG/100 ML PIGGYBACK IV ONE (16:39)
[2024-04-01 20:06] LABS: CALCIUM 7.5 mg/dL (8.5-10.1); CREATININE SERUM 0.73 mg/dL (0.70-1.30); GFR 109.6; POTASSIUM 3.38 mEq/L (3.5-5.1)
[2024-04-01] MEDS ORDERED: CIPROFLOXACIN IN 5 % DEXTROSE 400 MG/200 ML PIGGYBAG IV ONE (20:50)
[2024-04-01] MEDS ORDERED: MORPHINE SULFATE 4 MG/ML CARTRIDGE IV PRN (21:15)
[2024-04-01] MEDS ORDERED: POTASSIUM CHLORIDE IN 0.9%NACL 1,000 ML IV ONE (21:15)
[2024-04-01] MEDS ORDERED: 0.9 % SODIUM CHLORIDE 1,000 ML IV SCH (21:15)
[2024-04-01 23:17] LABS: HEMATOCRIT 30.2 % (39.0-48.0); HEMOGLOBIN 10.9 g/dL (13-16.00); MEAN CELL VOLUME 92.1 fL (80.0-100.00); MEAN CORPUSCULAR HEMOGLOBIN 33.4 pg (27.00-32.0); MEAN CORPUSCULAR HGB CONC 36.2 g/dl (32.0-36.0); RED BLOOD COUNT 3.28 M/uL (4.00-6.00); RED CELL DISTRIBUTION WIDTH 16.7 % (11.5-14.5)
[2024-04-01 23:19] LABS: PLATELET COUNT 66 K/uL (150-450)
[2024-04-01 23:30] VITALS: BP 80/50; O2SAT 97
[2024-04-01 23:34] LABS: URINE APPEARANCE Clear; URINE BILIRRUBIN Small (NEGATIVE); URINE BLOOD Negative; URINE COLOR Dark Yellow; URINE GLUCOSE Negative (NEGATIVE); URINE KETONE Negative (NEGATIVE); URINE LEUKOCYTE Trace; URINE NITRATE Positive; URINE PROTEIN 30 (NEGATIVE); URINE UROBILINOGEN 0.2 E.U./dl
[2024-04-01 23:38] LABS: URINE BACTERIA 8.5 uL (0.0-1933); URINE RBC 21.2 uL (0.0-20.8); URINE WBC 3.4 uL (0.0-23.2)
[2024-04-01 23:40] LABS: URINE CAST 0.29 uL (0.0-1.40)
[2024-04-02] MEDS ORDERED: MORPHINE SULFATE 2 MG/ML CARTRIDGE IV STA (00:45)
[2024-04-02] MEDS ORDERED: 0.9 % SODIUM CHLORIDE 500 ML IV ONE (00:45)
[2024-04-02 04:20] VITALS: BP 96/60
[2024-04-02] MEDS ORDERED: LEVOTHYROXINE SODIUM 50 MCG TABLET PO SCH (06:00)
[2024-04-02] MEDS ORDERED: PANTOPRAZOLE SODIUM 40 MG/VIAL VIAL IV SCH (09:00)
[2024-04-02] MEDS ORDERED: CLONAZEPAM 1 MG TABLET PO SCH (09:00)
[2024-04-02 09:27] VITALS: BP 86/52; O2SAT 97
[2024-04-02] MEDS ORDERED: VANCOMYCIN HCL 125 MG/7.5 ML BLIST.PACK PO SCH (12:00)
[2024-04-02 14:20] LABS: PH,URINE 5.5 (5.0-8.0); URINE APPEARANCE Clear; URINE BILIRRUBIN Small (NEGATIVE); URINE BLOOD Negative; URINE COLOR Dark Yellow; URINE GLUCOSE Negative (NEGATIVE); URINE KETONE Negative (NEGATIVE); URINE LEUKOCYTE Trace; URINE NITRATE Positive; URINE PROTEIN Trace (NEGATIVE); URINE UROBILINOGEN 0.2 E.U./dl
[2024-04-02 14:27] LABS: URINE BACTERIA 8.5 uL (0.0-1933); URINE RBC 7.9 uL (0.0-20.8); URINE WBC 1.8 uL (0.0-23.2)
[2024-04-02 15:01] LABS: URINE CRYSTALS FEW /HPF; URINE EPITHELIAL CELLS 0.9 uL (0.0-38.8)
[2024-04-02 17:41] VITALS: BP 100/59
[2024-04-02 19:55] LABS: INR 1.3; PARTIAL THROMBOPLASTIN TIME 35.1 SECONDS (22.0-34.0); PROTHROMBIN TIME 13.9 SECONDS (9.0-11.5)
[2024-04-03 02:41] VITALS: BP 97/57
[2024-04-03] MEDS ORDERED: MORPHINE SULFATE 4 MG/ML CARTRIDGE IV PRN (08:08)
[2024-04-03] MEDS ORDERED: TRIMETHOPRIM PO SCH (09:00)
[2024-04-03] MEDS ORDERED: SULFAMETHOXAZOLE PO SCH (09:00)
[2024-04-03 09:43] VITALS: BP 87/53; O2SAT 97
[2024-04-03] MEDS ORDERED: PATIENTS OWN MEDICATION (MEDICAMENTO EN PISO) PO SCH (10:25)
[2024-04-03] MEDS ORDERED: SULFAMETHOXAZOLE/TRIMETHOPRIM DS 1 TAB PO NR (11:00)
[2024-04-03 16:53] LABS: CALCIUM 7.6 mg/dL (8.5-10.1); CREATININE SERUM 0.96 mg/dL (0.70-1.30); GFR 79.9; MAGNESIUM 1.7 mg/dL (1.8-2.4); PHOSPHOROUS 2.1 mg/dL (2.5-4.9); POTASSIUM 3.32 mEq/L (3.5-5.1)
[2024-04-03 17:13] VITALS: BP 119/76
[2024-04-03] MEDS ORDERED: ZOLPIDEM TARTRATE 10 MG TABLET PO SCH (21:00)
[2024-04-04 02:36] VITALS: BP 111/66
[2024-04-04 08:42] VITALS: BP 98/71
[2024-04-04] MEDS ORDERED: SULFAMETHOXAZOLE/TRIMETHOPRIM DS 1 TAB PO SCH (09:00)
[2024-04-04] MEDS ORDERED: MAGNESIUM SULFATE IN WATER 2 GM/50 ML PIGGYBAG IV STA (11:47)
[2024-04-04] MEDS ORDERED: POTASSIUM CHLORIDE 20MEQ/100ML H2O PB IV NR (12:00)
[2024-04-04] MEDS ORDERED: POTASSIUM PHOS,M-BASIC-D-BASIC 15 MM in 0.9 % SODIUM CHLORIDE 250 ML IV NR (12:00)
[2024-04-04] MEDS ORDERED: MORPHINE SULFATE 4 MG/ML CARTRIDGE IV PRN (15:32)
[2024-04-04] MEDS ORDERED: LACTOBACILLUS ACIDOPHILUS 1 CAP CAP PO SCH (17:15)
[2024-04-04 17:43] VITALS: BP 116/54; O2SAT 96
[2024-04-05 03:39] VITALS: BP 114/56
[2024-04-05] MEDS ORDERED: LACTOBACILLUS ACIDOPHILUS 1 CAP CAP PO SCH (09:00)
[2024-04-05 09:11] VITALS: BP 116/67
[2024-04-05] MEDS ORDERED: BACLOFEN 10 MG TABLET PO PRN (13:15)
[2024-04-06 03:18] VITALS: BP 124/71
[2024-04-06 06:59] LABS: HEMATOCRIT 27.6 % (39.0-48.0); MEAN CELL VOLUME 92.4 fL (80.0-100.00); RED BLOOD COUNT 2.99 M/uL (4.00-6.00); RED CELL DISTRIBUTION WIDTH 17.2 % (11.5-14.5)
[2024-04-06 07:28] LABS: ALBUMIN 2.2 gm/dL (3.4-5.0); BILIRUBIN TOTAL 1.38 mg/dL (0.3-1.2); CALCIUM 7.9 mg/dL (8.5-10.1); CREATININE SERUM 0.97 mg/dL (0.70-1.30); GFR 78.95; GLOBULINA 2.4 G/DL (2.4-3.5); MAGNESIUM 2.1 mg/dL (1.8-2.4); PHOSPHOROUS 2.3 mg/dL (2.5-4.9); TOTAL PROTEIN 4.6 gm/dL (6.4-8.2)
[2024-04-06 07:39] LABS: HEMOGLOBIN 9.9 g/dL (13-16.00); MEAN CORPUSCULAR HEMOGLOBIN 33.1 pg (27.00-32.0)
[2024-04-06 07:40] LABS: PLATELET COUNT 100 K/uL (150-450)
[2024-04-06 09:03] VITALS: BP 121/66; O2SAT 98
[2024-04-06] MEDS ORDERED: POTASSIUM PHOS,M-BASIC-D-BASIC 15 MM in 0.9 % SODIUM CHLORIDE 250 ML IV NR (12:00)
[2024-04-06 14:05] LABS: afb smear Negative (.); afb spe proc Concentration (.)
[2024-04-06 16:09] LABS: hiv 1 < 20 (.)
[2024-04-06 16:56] VITALS: BP 118/67
[2024-04-07 00:56] VITALS: BP 109/77
[2024-04-07] MEDS ORDERED: LACTOBACILLUS ACIDOPHILUS 1 CAP CAP PO SCH (09:00)
[2024-04-07 09:05] VITALS: BP 102/65; O2SAT 97
[2024-04-07] MEDS ORDERED: VANCOMYCIN HCL 125 MG CAPSULE PO SCH (12:00)
[2024-04-07 18:07] VITALS: BP 116/69
[2024-04-07] MEDS ORDERED: ROPINIROLE 0.25 MG PO SCH (21:00)
[2024-04-08 01:36] VITALS: BP 114/68
[2024-04-08 09:23] VITALS: BP 102/55
[2024-04-08 17:29] VITALS: BP 94/59; O2SAT 98
[2024-04-08] MEDS ORDERED: MORPHINE SULFATE 4 MG/ML CARTRIDGE IV SCH (18:00)
[2024-04-09 03:05] VITALS: BP 96/57
[2024-04-09 08:43] VITALS: BP 100/57
[2024-04-09 11:17] LABS: HEMATOCRIT 32.4 % (39.0-48.0); HEMOGLOBIN 11.5 g/dL (13-16.00); MEAN CELL VOLUME 93.6 fL (80.0-100.00); MEAN CORPUSCULAR HGB CONC 35.3 g/dl (32.0-36.0); RED BLOOD COUNT 3.47 M/uL (4.00-6.00); RED CELL DISTRIBUTION WIDTH 17.7 % (11.5-14.5)
[2024-04-09 11:29] LABS: PLATELET COUNT 109 K/uL (150-450)
[2024-04-09 12:04] LABS: ALBUMIN 2.7 gm/dL (3.4-5.0); BILIRUBIN TOTAL 1.76 mg/dL (0.3-1.2); CALCIUM 8.2 mg/dL (8.5-10.1); CREATININE SERUM 1.23 mg/dL (0.70-1.30); GFR 60.02; GLOBULINA 2.9 G/DL (2.4-3.5); MAGNESIUM 2.3 mg/dL (1.8-2.4); POTASSIUM 3.71 mEq/L (3.5-5.1); TOTAL PROTEIN 5.6 gm/dL (6.4-8.2)
[2024-04-09] MEDS ORDERED: PANTOPRAZOLE SODIUM 40 MG in 0.9 % SODIUM CHLORIDE 8 ML IV PUSH STA (18:09)
[2024-04-09 18:27] VITALS: BP 110/58
[2024-04-10 02:47] VITALS: BP 122/68; BP 99/59; O2SAT 99
[2024-04-10] MEDS ORDERED: PANTOPRAZOLE SODIUM 40 MG TABLET.DR PO SCH (09:00)
[2024-04-10 09:14] VITALS: BP 95/58; O2SAT 100
[2024-04-10] MEDS ORDERED: ZOLPIDEM TARTRA10 MG PO (09:19)
[2024-04-10] MEDS ORDERED: ROPINIROLE HC0.25 MG PO (09:21)
[2024-04-10] MEDS ORDERED: OXYCONTIN10 M1 PO (09:21)
[2024-04-10] MEDS ORDERED: LEVOTHYROXINE50 MCG PO (09:22)
[2024-04-10] MEDS ORDERED: CLONAZEPAM2 MG PO (09:23)
== END 2024-04-10 16:17 | disposition home or self-care (01) | DRG 977 ==
LOC: ER 21:16 → MEDJ 04-01 21:29
PROVIDERS: Emergency Medicine; General Practice; Internal Medicine; ADMIT Internal Medicine; ATTEND Internal Medicine
PROC: BW21YZZ Computerized Tomography (CT Scan) of Abdomen and Pelvis using Other Contrast (ICD-10-PCS; principal; 2024-04-01)
PROC: BV44ZZZ Ultrasonography of Scrotum (ICD-10-PCS; 2024-04-03)
PROC: BW21YZZ Computerized Tomography (CT Scan) of Abdomen and Pelvis using Other Contrast (ICD-10-PCS; 2024-04-08)
DX: K52.9 Noninfective gastroenteritis and colitis, unspecified (principal); B20 Human immunodeficiency virus [HIV] disease; E87.6 Hypokalemia; N50.811 Right testicular pain